=== PATIENT | male | born 1945 | race Caucasian/White ===

== ENCOUNTER 2020-12-05 22:53 | Inpatient (IN) | payer MEDICARE, OTHER ==
[~2020-12-05] VITALS: Ht 172.7 cm; Wt 80.7 kg
[2020-12-05 23:30] VITALS: BP 142/84
[2020-12-05] MEDS ORDERED: DIVA-78 PO (23:34)
[2020-12-05] MEDS ORDERED: OLAN5TAB3 PO (23:35)
[2020-12-05] MEDS ORDERED: TRIA15CR2 TP (23:37)
[2020-12-05] MEDS ORDERED: IXEK80SY3 SQ (23:40)
[2020-12-05] MEDS ORDERED: METO-357 PO (23:41)
[2020-12-05] MEDS ORDERED: DOCU100C36 PO (23:43)
[2020-12-05] MEDS ORDERED: SENN-261 PO (23:45)
[2020-12-05] MEDS ORDERED: FLUT16SP BNOSTRILS (23:47)
[2020-12-05] MEDS ORDERED: ATOR20TA PO (23:48)
[2020-12-05] MEDS ORDERED: CLOB15OI3 TP (23:49)
[2020-12-05] MEDS ORDERED: ALBU8.5H8 INH (23:51)
[2020-12-05] MEDS ORDERED: HYDR-3980 PO (23:53)
[2020-12-05] MEDS ORDERED: APRE30TA2 PO (23:55)
[2020-12-05] MEDS ORDERED: TROS60CA3 PO (23:55)
[2020-12-05] MEDS ORDERED: ONDA-97 PO (23:56)
[2020-12-05] MEDS ORDERED: PANT40TA2 PO (23:57)
[2020-12-05] MEDS ORDERED: CLOP75TA15 PO (23:58)
--- NOTE | 2020-12-05 23:58 | NUR ---
GPS BODY FORMER NOTES ADMITTED 75 YRS OLD MALE PT FROM [facility] TO GPS UNIT. PER 5150 HOLD, UPON EVALUATION PATIENT WAS VISIBLY AGITATED, VERY LOUD & KEPT TALKING ABOUT WANTING POLICE ESCORT. PATIENT WAS UNCOOPERATIVE DURING INTERVIEW. PER NURSE AT [facility], PATIENT HAS BEEN AGITATED, YELLING, NOT COMPLYING WITH DIRECTIONS. PER NURSE, FAMILY REPORTED, PATIENT HAS MOMENTS OF DELUSIONS & AGGRESSIVE BEHAVIOR. PATIENT HAS BEEN HOSPITALIZED. UPON FACE TO FACE ADMISSION, PATIENT IS A & O X 2, ON RA, FORGETFUL, CONFUSED AT TIMES. AWAKE. DISHEVELED, DISORGANIZED, HYPERVERBAL, LABILE, NEEDY, RESTLESS, ANXIOUS, EASILY AGITATED, PARANOID, DELUSIONAL, KEEP SAYING," MY NAME IS ALI, YOU KNOW WHO IS ALI ? ALI IS GOD'S MESSENGER TO ME." PT. KEEPS TALKING SAME THING OVER & OVER. & UNABLE TO TAKE CARE OF HIMSELF, NEEDS ASSISTANCE WITH ADL CARE. REDIRECTAED THE PATIENT AMBULATORY WITH STANDBY ASSIST DUE TO HX OF FALLS (PER PATIENT). INCONTINENT OF BOWEL AND BLADDER. PT. REFUSED TO SIGN ANY PAPERWORK DUE TO AGITATION. BODY CHECK DONE, PICTURES TAKEN, PLACED IN THE CHART. WOUND CARE CONSULT ORDERED. PATIENT HAS HX OF PSORIASIS (GENERALIZED). NO ACUTE DISTRESS NOTED. PT'S BELONGINGS INVENTORIED & CHECKED FOR CONTRABAND. PATIENT ADVISED OF HOLD & PATIENT RIGHTS HANDBOOK GIVEN. BED IN LOW LOCKED POSITION. SAFETY MEASURES IN PLACE. DR. GRIFFIN & SABRA ANDERSON NOTIFIED. WILL CONTINUE TO MONITOR THIS PT. Q 15 MIN TO MAINTAIN SAFETY.
--- NOTE | 2020-12-06 00:09 | NUR ---
GPS RN NOTE PATIENT SEEN BY DR. SABRA ANDERSON ON THE UNIT WITH NEW ORDERS TO GIVE ENEMA SINCE PATIENT C/O NOT HAVING BM X 7 DAYS TO MD. NOTED & CARRIED OUT. WILL GIVE ENEMA ORDERED ONCE VERIFIED BY PHARMACY.
[2020-12-06] MEDS ORDERED: BLOOD SUGAR DIAGNOSTIC 1 EACH STRIP IN ONE (00:30)
[2020-12-06] MEDS ORDERED: MAG HYDROX/AL HYDROX/SIMETH 30 ML UDC PO PRN (00:30)
[2020-12-06] MEDS ORDERED: FLUTICASONE PROPIONATE 16 GM BOTTLE NS PRN (00:30)
[2020-12-06] MEDS ORDERED: TEMAZEPAM 7.5 MG CAPSULE PO PRN (00:30)
--- NOTE | 2020-12-06 00:53 | NUR ---
GPS RN NOTE MD ORDERED TO GIVE ENEMA AT 0900 ON 12/06/2020. PATIENT IS SLEEPING INTERMITTENTLY AT THIS TIME 7 WANTS TO REST.
[2020-12-06] MEDS ORDERED: ALBUTEROL FS 2.5 MG/3 ML VIAL.NEB NEB PRN (01:30)
--- NOTE | 2020-12-06 07:13 | NUR ---
GPS RN NOTE CALLED PATIENT'S SON HUMZA WILBURN, NOTIFIED HIM ABOUT PATIENT'S ADMISSION AT [facility], GPS UNIT.
[2020-12-06 07:24] LABS: BASOPHILS % (AUTO) 0.8 % (0.0-2.0); EOSINOPHILS % (AUTO) 8.4 % (0.0-6.0); HEMATOCRIT 32 % (39-51); HEMOGLOBIN 10.5 g/dL (13.5-17.5); LYMPHOCYTES # (AUTO) 1.5 /CMM (0.8-4.8); LYMPHOCYTES % (AUTO) 25.3 % (20.0-44.0); MEAN CORPUSCULAR HGB CONC 33 g/dl (31.0-36.0); MEAN CORPUSCULAR VOLUME 92 fL (80-96); MONOCYTES # (AUTO) 0.4 /CMM (0.1-1.30); MONOCYTES % (AUTO) 7.4 % (2.0-12.0); NEUTROPHILS # (AUTO) 3.5 /CMM (1.8-8.9); NEUTROPHILS % (AUTO) 58.1 % (43.0-81.0); PLATELET COUNT (AUTO) 337 /CMM (150-450); RED BLOOD CELL COUNT(AUTO) 3.49 MIL/uL (4.5-6.0)
[2020-12-06 07:43] LABS: CALCIUM, SERUM 9.3 mg/dL (8.5-10.1); POTASSIUM 3.5 mmol/L (3.5-5.1)
[2020-12-06 08:00] VITALS: BP 122/64
[2020-12-06] MEDS ORDERED: MINERAL OIL 133 ML (PYXIS) 1 EA ENEMA RC ONE (09:00)
[2020-12-06] MEDS: PANTOPRAZOLE 40 MG TABLET.DR PO SCH (09:00)
[2020-12-06] MEDS: CLOPIDOGREL BISULFATE 75 MG TABLET PO SCH (09:00)
[2020-12-06] MEDS: CLOBETASOL 0.05% OINT 30 GM TUBE TP SCH ×2 (09:04→16:21)
[2020-12-06] MEDS: TRIAMCINOLONE ACETONIDE 0.5% 15 GM TUBE TP SCH ×4 (09:05→20:54)
--- NOTE | 2020-12-06 10:15 | NUR ---
RN Notes Enema given this a.m with large bm, patient voices relief. Welder Apprentice Arc followed up with son this a.m concerning medication clarification. Son will bring otezla, methotrexate(given every Wednesday), Taltz syringe(given monthly, last dose 12/02) and pull-ups. Patient aaox2, cooperative and med compliant. No aggressive behaviors, denies voices. Addendum: 12/06/20 at 1401 by ALEXY HENDRICKS RN Per son patient does not take trospium chloride since removal of bladder.
[2020-12-06] MEDS: ACETAMINOPHEN 325 MG TABLET PO PRN (10:41)
--- NOTE | 2020-12-06 11:02 | NUR ---
WOUND CARE CONSULT: PT PRESENTS WITH CLOSED ABDOMINAL INCISION WITH SOME SUTURES VISIBLE, PRESENT ON ADMISSION. NO DRAINAGE NOTED. PT STATES WILL SEE HIS SURGEON NEXT WEEK FOR FOLLOW UP. PT IS INDEPENDENT WITH BED MOBILITY. WILL SEE PRN.
--- NOTE | 2020-12-06 11:22 | NUR ---
Substance Abuse Intervention: SW conducted a substance abuse intervention with the pt due to his cannabis use.
[2020-12-06] MEDS: DIVALPROEX SODIUM 125 MG CAP.SPRINK PO SCH ×3 (11:30→16:33)
--- NOTE | 2020-12-06 12:12 | NUR ---
Family Contact: SW called the pts son/caregiver, Taya ([phone]), and received a detail of the most current events leading to the pts hospitalization and discussed the pts treatment plan. Pts son stated that the pt has been acting out since he had his bladder and prostrate removed. Pt has been refusing food and medication from his son. Pts son stated that he would like the pt home and would not want to send him to a rehab. SW stated that she will keep him updated.
--- NOTE | 2020-12-06 14:45 | NUR ---
Orders received per medical doctor to continue provided home medication otezla and methotrexate.
[2020-12-06] MEDS ORDERED: METH25VI11 IJ (14:58)
--- NOTE | 2020-12-06 15:30 | NUR ---
Initial Discharge Plan: Pt currently resides in an apartment located at [address] [place] [address]; ([phone]), with his son Taya. Per pt, he would like to return home. SW will work with the pt and the MD regarding appropriate discharge planning. SW will form a safe and proper discharge.
[2020-12-06 16:00] VITALS: BP 136/67
[2020-12-06] MEDS: OTEZLA 30 MG PO SCH (16:21)
--- NOTE | 2020-12-06 17:32 | NUR ---
RN NOTE PATIENT NOTED STANDING IN OUTSIDE OF BEDROOM DOOR, LOUDLY DEMANDING HOUSEKEEPING. EVERY STATEMENT INVOLVES "CHIEF POLICE TAKE CARE OF ME." REFUSES DEPAKOTE. DENIES HEARING VOICES. ASSISTANCE REQUIRED WITH URINATION-STANDS WHILE PRESSING ON BLADDER TO START STREAM. DENIES PAIN/DISCOMFORTS. 100% MEALS CONSUMED.
[2020-12-06] MEDS ORDERED: TROSPIUM CHLORIDE 60 MG PO SCH (18:00)
[2020-12-06 20:24] VITALS: BP 132/77
[2020-12-06] MEDS: METOPROLOL SUCCINATE 50 MG TAB.SR.24H PO SCH (21:09)
[2020-12-06] MEDS: DOCUSATE SODIUM 100 MG CAPSULE PO SCH (21:09)
[2020-12-06] MEDS: ATORVASTATIN 10 MG TABLET PO SCH (21:09)
[2020-12-06] MEDS: OLANZAPINE 10 MG TABLET PO SCH ×2 (21:10→22:00)
--- NOTE | 2020-12-06 21:10 | NUR ---
GPS-RN NOTES: MEDICATION REFUSAL PATIENT REFUSED SCHEDULED ZYPREXA DOSE FOR TONIGHT. EDUCATED PATIENT REGARDING MEDICATION COMPLIANCE. PATIENT STATED "NO, I DON'T WANT IT, I'M NOT CRAZY" OFFERED X3, PT. CONTINUED TO REFUSE. WILL CONTINUE TO MONITOR.
[2020-12-07] MEDS: ACETAMINOPHEN 325 MG TABLET PO PRN ×2 (01:55→17:41)
--- NOTE | 2020-12-07 01:55 | NUR ---
GPS-RN NOTES: LOWER BACK PAIN PATIENT C/O LOWER BACK PAIN ON A PAIN SCALE OF 3/10. ADMINISTERED ACETAMINOPHEN 650MG PO ORDERED PER PT'S REQUEST. WILL CONTINUE TO REASSESS.
--- NOTE | 2020-12-07 05:28 | NUR ---
GPS-RN NOTES: PATIENT C/O PAIN/DISCOMFORT IN THE LOWER ABDOMEN. PATIENT IS REQUESTING FOR TYLENOL. PRN TYLENOL 650MG PO WAS GIVEN AT 0155. PAGED EPIC ON-CALL CHAO ANDERSON INFORMED HIM REGARDING PATIENT'S REQUEST TO GET ONE TIME ORDER OF TYLENOL. PER MONICA, PATIENT HAVE TO WAIT UNTIL IT IS DUE AGAIN. PATIENT MADE AWARE AND HE VERBALIZED UNDERSTANDING. PATIENT MADE COMFORTABLE. WILL CONTINUE TO MONITOR. Addendum: 12/07/20 at 8526 by ROMAN DEWITT RN INFORMED HER
[2020-12-07 08:00] VITALS: BP 117/59
--- NOTE | 2020-12-07 08:00 | NUR ---
received pt. am,easily agitated,demanding.calling out for nurse often.
[2020-12-07] MEDS: CLOPIDOGREL BISULFATE 75 MG TABLET PO SCH (08:34)
[2020-12-07] MEDS: OTEZLA 30 MG PO SCH ×2 (08:34→17:33)
[2020-12-07] MEDS: DIVALPROEX SODIUM 125 MG CAP.SPRINK PO SCH ×4 (08:34→17:32)
[2020-12-07] MEDS: PANTOPRAZOLE 40 MG TABLET.DR PO SCH (08:34)
[2020-12-07] MEDS: CLOBETASOL 0.05% OINT 30 GM TUBE TP SCH ×2 (08:35→17:33)
[2020-12-07] MEDS: TRIAMCINOLONE ACETONIDE 0.5% 15 GM TUBE TP SCH ×4 (08:35→21:42)
[2020-12-07] MEDS: ONDANSETRON 4 MG TAB.RAPDIS PO PRN ×2 (12:28→17:54)
--- NOTE | 2020-12-07 12:33 | NUR ---
medicated for nausea with zofran.
--- NOTE | 2020-12-07 15:16 | NUR ---
RN CALLED Emilee MCCLELLAND NP REGARDING NEED FOR METHOTREXATE IM.STATES HE WILL ORDER TOMORROW FOR DRUG TO START SATURDAY 12/09.
[2020-12-07 16:00] VITALS: BP 107/67
--- NOTE | 2020-12-07 17:41 | NUR ---
given tylenol for discomfort.
--- NOTE | 2020-12-07 17:54 | NUR ---
given zofran for nausea although eating,pt. argumentative and requests med anyway.
--- NOTE | 2020-12-07 18:32 | NUR ---
refused depakote 2x today.
--- NOTE | 2020-12-07 18:42 | NUR ---
received call from [facility] regarding pt. having mrsa in nares.supercharger repair supervisor informed.bactroban ordered.
[2020-12-07] MEDS: MUPIROCIN OINT 2% 22 GM TUBE NS SCH (19:00)
--- NOTE | 2020-12-07 19:54 | NUR ---
GPS RN NOTES: PT REFUSED 19:00 BACTROBAN OINT 2% FOR BOTH NARES ORDERED.
[2020-12-07 20:09] VITALS: BP 141/86
[2020-12-07] MEDS: ATORVASTATIN 10 MG TABLET PO SCH (22:00)
[2020-12-07] MEDS: OLANZAPINE 10 MG TABLET PO SCH (22:00)
[2020-12-07] MEDS: METOPROLOL SUCCINATE 50 MG TAB.SR.24H PO SCH (22:34)
[2020-12-07] MEDS: DOCUSATE SODIUM 100 MG CAPSULE PO SCH (22:44)
--- NOTE | 2020-12-07 22:47 | NUR ---
GPS RN NOTES: PT REFUSED 22:00 MEDS. LIPITOR 20MG AND OLANZAPINE 2.5MG ORDERED.
[2020-12-08 00:59] LABS: BILIRUBIN,URINE NEGATIVE (NEGATIVE); COLOR,URINE YELLOW (YELLOW); LEUKOCYTE ESTERASE ,URINE MODERATE (NEGATIVE); NITRITE, URINE NEGATIVE (NEGATIVE); PH,URINE 6.5 (5.0-8.0); PROTEIN,URINE NEGATIVE (NEGATIVE); UGLUCOSE NEGATIVE (NEGATIVE); UROBILINOGEN,URINE 0.2 EU/dL (0.2)
[2020-12-08] MEDS: ACETAMINOPHEN 325 MG TABLET PO PRN ×2 (01:05→21:28)
[2020-12-08 01:53] LABS: WBC,URINE 81-100 /HPF (0-3)
[2020-12-08 01:54] LABS: BACTERIA,URINE Many /HPF (None Seen); SQUAMOUS EPITHELIAL CELL,UR Few /HPF (None Seen)
--- NOTE | 2020-12-08 05:53 | NUR ---
GPS RN NOTES: PATIENT URINE HAS LOTS OF SEDIMENTS. SAMPLE SENT TO LAB FOR URINALYSIS AND CULTURE. RESULT PENDING.
--- NOTE | 2020-12-08 06:36 | NUR ---
GPS RN CLOSING NOTES: PATIENT AWAKE, ALERT AND ORIENTED X2. LABILE, NEEDY, SLEPT 2HR THIS SHIFT. NO S/S OF DISTRESS. RESPIRATION EVEN AND UNLABORED WITH EQUAL RISE AND FALL OF THE CHEST ON ROOM AIR. SAFETY PRECAUTION MAINTAINED, Q15 MINUTES SAFETY ROUND CONTINUED. ALL PATIENT CARE NEEDS HAVE BEEN MET AT THIS TIME. WILL CONTINUE TO MONITOR PATIENT FOR MOOD, BEHAVIOR AND SAFETY AND ENDORSE TO AM SHIFT.
[2020-12-08 08:00] VITALS: BP 140/75
[2020-12-08] MEDS: CLOPIDOGREL BISULFATE 75 MG TABLET PO SCH (08:26)
[2020-12-08] MEDS: MUPIROCIN OINT 2% 22 GM TUBE NS SCH ×2 (08:29→21:00)
[2020-12-08] MEDS: CLOBETASOL 0.05% OINT 30 GM TUBE TP SCH ×2 (08:29→17:14)
[2020-12-08] MEDS: TRIAMCINOLONE ACETONIDE 0.5% 15 GM TUBE TP SCH ×4 (08:29→21:09)
[2020-12-08] MEDS: OTEZLA 30 MG PO SCH ×2 (08:29→17:15)
[2020-12-08] MEDS: DIVALPROEX SODIUM 125 MG CAP.SPRINK PO SCH ×2 (08:36→17:00)
[2020-12-08] MEDS: PANTOPRAZOLE 40 MG TABLET.DR PO SCH (08:37)
--- NOTE | 2020-12-08 09:00 | NUR ---
RN NOTE- PT LOUD AND NEEDY, VOIDING IN BED SIDE COMMODE SELECTIVELY MED COMPLIANT, PO INTAKE [employer] W FWW STEADY. DENIES ALL, DELUSIONAL CONFUSED
[2020-12-08] MEDS: MAGNESIUM HYDROXIDE 30 ML UDC PO PRN (12:26)
--- NOTE | 2020-12-08 12:26 | NUR ---
RN NOTE- C/O CONSTIPATION. MOM 30 CC GIVEN. THREE BM'S YESTERDAY TOTAL.
[2020-12-08] MEDS ORDERED: IBUPROFEN 400 MG TABLET PO PRN (14:00)
[2020-12-08] MEDS: CEPHALEXIN MONOHYDRATE 250 MG CAPSULE PO SCH ×2 (14:43→20:32)
[2020-12-08 16:00] VITALS: BP 141/86
[2020-12-08 20:30] VITALS: BP 117/64
--- NOTE | 2020-12-08 21:07 | NUR ---
GPS RN NOTES: PT REFUSED 21:00 BACTROBAN OINT 2% FOR BOTH NARES ORDERED.
[2020-12-08] MEDS: DOCUSATE SODIUM 100 MG CAPSULE PO SCH (21:27)
[2020-12-08] MEDS: METOPROLOL SUCCINATE 50 MG TAB.SR.24H PO SCH (21:29)
[2020-12-08] MEDS: OLANZAPINE 10 MG TABLET PO SCH (22:00)
[2020-12-08] MEDS: ATORVASTATIN 10 MG TABLET PO SCH (22:00)
--- NOTE | 2020-12-08 22:34 | NUR ---
GPS RN NOTES: PT REFUSED 22:00 MEDS. LIPITOR 20MG AND OLANZAPINE 0.25MG ORDERED.
[2020-12-09] MEDS: CEPHALEXIN MONOHYDRATE 250 MG CAPSULE PO SCH ×3 (05:27→21:25)
--- NOTE | 2020-12-09 06:17 | NUR ---
GPS RN CLOSING NOTES: PATIENT AWAKE, ALERT AND ORIENTED X2. LABILE, NEEDY, SLEPT 5HR THIS SHIFT. WEEKLY SKIN ASSESSMENT DONE, PICTURES TAKEN AND PLACED IN PATIENT CHART. NO S/S OF DISTRESS. RESPIRATION EVEN AND UNLABORED WITH EQUAL RISE AND FALL OF THE CHEST ON ROOM AIR. SAFETY PRECAUTION MAINTAINED, Q15 MINUTES SAFETY ROUND CONTINUED. ALL PATIENT CARE NEEDS HAVE BEEN MET AT THIS TIME. WILL CONTINUE TO MONITOR PATIENT FOR MOOD, BEHAVIOR AND SAFETY AND ENDORSE TO AM SHIFT.
[2020-12-09 08:00] VITALS: BP 124/65
[2020-12-09] MEDS: DIVALPROEX SODIUM 125 MG CAP.SPRINK PO SCH ×3 (09:00→16:33)
[2020-12-09] MEDS: PANTOPRAZOLE 40 MG TABLET.DR PO SCH (09:00)
[2020-12-09] MEDS: TRIAMCINOLONE ACETONIDE 0.5% 15 GM TUBE TP SCH ×4 (09:16→21:31)
[2020-12-09] MEDS: CLOPIDOGREL BISULFATE 75 MG TABLET PO SCH (09:16)
[2020-12-09] MEDS: MUPIROCIN OINT 2% 22 GM TUBE NS SCH ×2 (09:16→21:00)
[2020-12-09] MEDS: OTEZLA 30 MG PO SCH ×2 (09:16→16:13)
[2020-12-09] MEDS: CLOBETASOL 0.05% OINT 30 GM TUBE TP SCH ×2 (09:16→16:08)
[2020-12-09] MEDS: LORAZEPAM 0.5 MG TABLET PO PRN (09:16)
[2020-12-09 16:00] VITALS: BP 134/71
--- NOTE | 2020-12-09 16:33 | NUR ---
RN NOTES PATIENT REFUSED DIVALPROEX MEDICATION; EXPLAINED IMPORTANCE OF MEDICATION BUT PATIENT STILL REFUSED AND STATED THAT HE "DOES NOT HAVE ANY MENTAL PROBLEM".
[2020-12-09 20:03] VITALS: BP 126/66
[2020-12-09] MEDS: DOCUSATE SODIUM 100 MG CAPSULE PO SCH (21:24)
[2020-12-09] MEDS: METOPROLOL SUCCINATE 50 MG TAB.SR.24H PO SCH (21:28)
[2020-12-09] MEDS: ATORVASTATIN 10 MG TABLET PO SCH (21:30)
[2020-12-09] MEDS: OLANZAPINE 10 MG TABLET PO SCH (21:38)
--- NOTE | 2020-12-09 22:00 | NUR ---
NURSES NOTES: PATIENT REFUSED TO TAKE HIS LIPITOR AND ZYPREXA MEDICATION. PER PATIENT, " I DON'T KNOW WHAT THESE MEDICATIONS ARE, I AM NOT CRAZY". NURSE EXPLAINED TO PATIENT BENEFITS AND RISKS BUT PATIENT STILL REFUSED.
[2020-12-10] MEDS: CEPHALEXIN MONOHYDRATE 250 MG CAPSULE PO SCH ×3 (05:08→20:52)
[2020-12-10 08:00] VITALS: BP 128/52
[2020-12-10] MEDS: CLOPIDOGREL BISULFATE 75 MG TABLET PO SCH (08:54)
[2020-12-10] MEDS: MUPIROCIN OINT 2% 22 GM TUBE NS SCH ×2 (08:54→21:00)
[2020-12-10] MEDS: OTEZLA 30 MG PO SCH ×2 (08:55→16:51)
[2020-12-10] MEDS: PANTOPRAZOLE 40 MG TABLET.DR PO SCH (08:55)
[2020-12-10] MEDS: DIVALPROEX SODIUM 125 MG CAP.SPRINK PO SCH ×2 (08:55→16:51)
[2020-12-10] MEDS: CLOBETASOL 0.05% OINT 30 GM TUBE TP SCH ×2 (08:58→16:51)
[2020-12-10] MEDS: TRIAMCINOLONE ACETONIDE 0.5% 15 GM TUBE TP SCH ×4 (08:58→21:21)
--- NOTE | 2020-12-10 09:00 | NUR ---
RN NOTE-N PT NEEDY. SELECTIVELY MED COMPLIANT, NO BEHAVIORAL ISSUES, TOPICAL CREAM APPLIED FOR ECZEMA, PT PARANOID DELUSIONAL
[2020-12-10] MEDS ORDERED: METHOTREXATE SODIUM 25 MG/ML SQ SCH (14:30)
--- NOTE | 2020-12-10 15:51 | NUR ---
RN NOTE- SPOKE W SON REGARDING PTS METHOTREXATE ONCE WEEKLY SQ DOSE FOR PTS PSORIASIS . CHAO DRISCOLL INFORMED AND WERE TOLD BY PHARMACY THAT ITS A CHEMO RX AND NOT GIVEN ON THIS UNIT. SPOKE W SON AGAIN AND AGREE TO NOT ADMINISTER WHILE ON UNIT.
[2020-12-10 16:00] VITALS: BP 133/77
--- NOTE | 2020-12-10 16:06 | NUR ---
Family Contact: SW called the pts son/caregiver, Taya ([phone]), and discussed the pts Riese hearing the following day and verified that he would not be willing to take the pt home if the pt is not taking his medications.
[2020-12-10 19:46] VITALS: BP 128/69
[2020-12-10] MEDS: DOCUSATE SODIUM 100 MG CAPSULE PO SCH (21:17)
[2020-12-10] MEDS: METOPROLOL SUCCINATE 50 MG TAB.SR.24H PO SCH (21:18)
--- NOTE | 2020-12-10 21:22 | NUR ---
GPS RN NOTES: PT REFUSED 21:00 BACTROBAN OINT FOR BOTH NARES ORDERED.
[2020-12-10] MEDS: OLANZAPINE 10 MG TABLET PO SCH (22:00)
[2020-12-10] MEDS: ATORVASTATIN 10 MG TABLET PO SCH (22:00)
--- NOTE | 2020-12-10 22:08 | NUR ---
GPS RN NOTES: PT REFUSED 22:00 MEDS. LIPITOR 20MG AND OLANZAPINE 0.25MG ORDERED.
[2020-12-11] MEDS: CEPHALEXIN MONOHYDRATE 250 MG CAPSULE PO SCH ×3 (05:25→21:23)
--- NOTE | 2020-12-11 06:27 | NUR ---
GPS RN CLOSING NOTES: PATIENT LAYING ON BED, AWAKE, A/O 2X. CALM, PASSIVE, SLEPT 6HR THIS SHIFT. NO S/S OF DISTRESS. RESPIRATION EVEN AND UNLABORED WITH EQUAL RISE AND FALL OF THE CHEST ON ROOM AIR. SAFETY PRECAUTION MAINTAINED, Q15 MINUTES SAFETY ROUND CONTINUED. ALL PATIENT CARE NEEDS HAVE BEEN MET AT THIS TIME. WILL CONTINUE TO MONITOR PATIENT FOR MOOD, BEHAVIOR AND SAFETY AND ENDORSE TO AM SHIFT.
[2020-12-11 08:00] VITALS: BP 111/63
--- NOTE | 2020-12-11 08:00 | NUR ---
REFUSED DEPAKOTE IN AM.
[2020-12-11] MEDS: TRIAMCINOLONE ACETONIDE 0.5% 15 GM TUBE TP SCH ×4 (08:54→21:24)
[2020-12-11] MEDS: CLOBETASOL 0.05% OINT 30 GM TUBE TP SCH ×2 (08:54→18:10)
[2020-12-11] MEDS: MUPIROCIN OINT 2% 22 GM TUBE NS SCH ×2 (09:00→21:24)
[2020-12-11] MEDS: DIVALPROEX SODIUM 125 MG CAP.SPRINK PO SCH ×3 (09:00→18:10)
[2020-12-11] MEDS: PANTOPRAZOLE 40 MG TABLET.DR PO SCH ×2 (09:00→09:04)
[2020-12-11] MEDS: CLOPIDOGREL BISULFATE 75 MG TABLET PO SCH (09:04)
[2020-12-11] MEDS: OTEZLA 30 MG PO SCH ×2 (09:04→18:10)
[2020-12-11] MEDS ORDERED: OLANZAPINE 10 MG VIAL IM SCH (12:00)
--- NOTE | 2020-12-11 12:12 | NUR ---
GPS RN NOTE: T.O. ORDER FROM DR. GRIFFIN PT REISED NEW ORDER ZYPREXA 2.5 MG PO Q 12 HR FOR EVERY REFUSAL PO GIVE ZYPREXA 2.5 MG IM ORDER PLACED AND CARED OUT.
[2020-12-11] MEDS: OLANZAPINE 10 MG TABLET PO SCH ×2 (12:57→21:23)
[2020-12-11 16:00] VITALS: BP 131/70
--- NOTE | 2020-12-11 18:44 | NUR ---
talking freq. about going home.
[2020-12-11 20:04] VITALS: BP 117/71
[2020-12-11] MEDS: ATORVASTATIN 10 MG TABLET PO SCH (21:23)
[2020-12-11] MEDS: LORAZEPAM 0.5 MG TABLET PO PRN (21:23)
[2020-12-11] MEDS: METOPROLOL SUCCINATE 50 MG TAB.SR.24H PO SCH (21:24)
[2020-12-11] MEDS: DOCUSATE SODIUM 100 MG CAPSULE PO SCH (22:00)
--- NOTE | 2020-12-11 22:15 | NUR ---
PATIENT REFUSED STOOL SOFTENER, STATES HE HAD 2 BOWEL MOVEMENTS TODAY.
[2020-12-12] MEDS: CEPHALEXIN MONOHYDRATE 250 MG CAPSULE PO SCH ×3 (05:31→20:32)
--- NOTE | 2020-12-12 05:59 | NUR ---
PATIENT SLEPT FOR 6 HOURS, AWAKE INTERMITTENTLY. SAFETY PRECAUTIONS MAINTAINED. WILL CONTINUE MONITORING CLOSELY.
[2020-12-12 08:00] VITALS: BP 128/65
[2020-12-12] MEDS: MUPIROCIN OINT 2% 22 GM TUBE NS SCH ×2 (08:25→21:00)
[2020-12-12] MEDS: TRIAMCINOLONE ACETONIDE 0.5% 15 GM TUBE TP SCH ×4 (08:26→20:33)
[2020-12-12] MEDS: CLOPIDOGREL BISULFATE 75 MG TABLET PO SCH (08:26)
[2020-12-12] MEDS: CLOBETASOL 0.05% OINT 30 GM TUBE TP SCH ×2 (08:26→16:17)
[2020-12-12] MEDS: OTEZLA 30 MG PO SCH ×2 (08:26→16:17)
[2020-12-12] MEDS: OLANZAPINE 10 MG TABLET PO SCH ×2 (08:26→21:33)
[2020-12-12] MEDS: PANTOPRAZOLE 40 MG TABLET.DR PO SCH (08:26)
[2020-12-12] MEDS: DIVALPROEX SODIUM 125 MG CAP.SPRINK PO SCH ×2 (08:49→16:16)
[2020-12-12] MEDS: MAGNESIUM HYDROXIDE 30 ML UDC PO PRN (08:50)
[2020-12-12] MEDS: LORAZEPAM 0.5 MG TABLET PO PRN (10:31)
--- NOTE | 2020-12-12 14:46 | NUR ---
Family Contact: SW called the pts son/caregiver, Taya ([phone]), and informed him that the pt has been Reised and that today he actually took his medications orally without having to be forced. SW stated that if he continues to take his medications orally he will be discharged on Wednesday. SW stated that the nurses will explain the medications and discharge instructions at the time of discharge. SW also inquired about the pts cannabis use and pts son stated that the pt has been using cannabis since he was a teenager and their Neurologist, Dr. Webster, stated that it would help the pt sleep at night.
[2020-12-12 16:00] VITALS: BP 143/72
--- NOTE | 2020-12-12 17:42 | NUR ---
RN NOTE PATIENT MED COMPLIANT. DELUSIONAL STATEMENTS REMAIN THE SAME, SPEAKS OF THE "[employer]" & OFTEN REQUEST THE SHARPLES MACHINE OPERATOR BE PRESENT. APPEARS TO BE OBSESSED WITH BOWELS "CONSTIPATION." PRUNE JUICE AND MILK OF MAGNESIA ADMINISTERED. NO AGGRESSIVE BEHAVIORS. DENIES SI/HI, AUDITORY OR VISUAL HALLUCINATIONS.
[2020-12-12 19:49] VITALS: BP 135/73
[2020-12-12] MEDS: DOCUSATE SODIUM 100 MG CAPSULE PO SCH (21:25)
[2020-12-12] MEDS: ATORVASTATIN 10 MG TABLET PO SCH (21:25)
[2020-12-12] MEDS: METOPROLOL SUCCINATE 50 MG TAB.SR.24H PO SCH (21:27)
--- NOTE | 2020-12-12 21:34 | NUR ---
GPS RN NOTES: PT REFUSED 21:00 BACTROBAN OINT FOR BOTH NARES ORDERED.
[2020-12-13] MEDS: CEPHALEXIN MONOHYDRATE 250 MG CAPSULE PO SCH ×3 (05:18→21:33)
--- NOTE | 2020-12-13 06:35 | NUR ---
GPS RN CLOSING NOTES: PATIENT LAYING ON BED SLEEPING COMFORTABLY, SLEPT 7HR THIS SHIFT. MED COMPLIANT THIS SHIFT. NO S/S OF DISTRESS. RESPIRATION EVEN AND UNLABORED WITH EQUAL RISE AND FALL OF THE CHEST ON ROOM AIR. SAFETY PRECAUTION MAINTAINED, Q15 MINUTES SAFETY ROUND CONTINUED. ALL PATIENT CARE NEEDS HAVE BEEN MET. WILL CONTINUE TO MONITOR PATIENT FOR MOOD, BEHAVIOR AND SAFETY AND ENDORSE TO AM SHIFT.
[2020-12-13 08:00] VITALS: BP 105/50
[2020-12-13] MEDS: DIVALPROEX SODIUM 125 MG CAP.SPRINK PO SCH ×3 (08:23→16:19)
[2020-12-13] MEDS: OLANZAPINE 10 MG TABLET PO SCH ×2 (08:23→21:31)
[2020-12-13] MEDS: PANTOPRAZOLE 40 MG TABLET.DR PO SCH (08:23)
[2020-12-13] MEDS: CLOPIDOGREL BISULFATE 75 MG TABLET PO SCH (08:23)
[2020-12-13] MEDS: OTEZLA 30 MG PO SCH ×2 (08:28→16:15)
[2020-12-13] MEDS: TRIAMCINOLONE ACETONIDE 0.5% 15 GM TUBE TP SCH ×4 (08:28→21:32)
[2020-12-13] MEDS: MUPIROCIN OINT 2% 22 GM TUBE NS SCH ×2 (08:28→21:31)
[2020-12-13] MEDS: CLOBETASOL 0.05% OINT 30 GM TUBE TP SCH ×2 (08:28→16:15)
[2020-12-13 15:59] VITALS: BP 100/51
[2020-12-13 20:33] VITALS: BP 126/73
[2020-12-13] MEDS: DOCUSATE SODIUM 100 MG CAPSULE PO SCH (21:29)
[2020-12-13] MEDS: METOPROLOL SUCCINATE 50 MG TAB.SR.24H PO SCH (21:30)
[2020-12-13] MEDS: ATORVASTATIN 10 MG TABLET PO SCH (21:30)
[2020-12-14] MEDS: ACETAMINOPHEN 325 MG TABLET PO PRN (00:49)
--- NOTE | 2020-12-14 00:52 | NUR ---
NURSES NOTES: PATIENT COMPLAINED OF PAIN ON HIS SURGICAL SITE, REQUESTED FOR TYLENOL MEDICATION- TYLENOL 650 MG GIVEN ORALLY. WILL MONITOR EFFICACY OF MEDICATION.
[2020-12-14] MEDS: ONDANSETRON 4 MG TAB.RAPDIS PO PRN (03:23)
--- NOTE | 2020-12-14 03:47 | NUR ---
NURSES NOTES: PATIENT REPORTED NAUSEA FEELING. REQUESTED FOR MEDICATION. ZOFRAN 4 MG ODT TAB GIVEN ORDERED. WILL MONITOR PATIENT.
[2020-12-14] MEDS: CEPHALEXIN MONOHYDRATE 250 MG CAPSULE PO SCH ×3 (05:04→21:19)
[2020-12-14 08:00] VITALS: BP 120/64
[2020-12-14] MEDS: PANTOPRAZOLE 40 MG TABLET.DR PO SCH (08:33)
[2020-12-14] MEDS: CLOPIDOGREL BISULFATE 75 MG TABLET PO SCH (08:33)
[2020-12-14] MEDS: OLANZAPINE 10 MG TABLET PO SCH ×2 (08:33→21:20)
[2020-12-14] MEDS: DIVALPROEX SODIUM 125 MG CAP.SPRINK PO SCH ×3 (08:33→16:16)
[2020-12-14] MEDS: MUPIROCIN OINT 2% 22 GM TUBE NS SCH (08:35)
[2020-12-14] MEDS: CLOBETASOL 0.05% OINT 30 GM TUBE TP SCH ×2 (08:35→16:17)
[2020-12-14] MEDS: OTEZLA 30 MG PO SCH ×2 (08:35→16:16)
[2020-12-14] MEDS: TRIAMCINOLONE ACETONIDE 0.5% 15 GM TUBE TP SCH ×4 (08:35→21:20)
[2020-12-14 16:00] VITALS: BP 112/59
[2020-12-14] MEDS: SENNOSIDES 8.6 MG TABLET PO PRN (16:17)
[2020-12-14 19:58] VITALS: BP 119/66
[2020-12-14] MEDS: METOPROLOL SUCCINATE 50 MG TAB.SR.24H PO SCH (21:19)
[2020-12-14] MEDS: ATORVASTATIN 10 MG TABLET PO SCH (21:19)
[2020-12-14] MEDS: DOCUSATE SODIUM 100 MG CAPSULE PO SCH (21:22)
[2020-12-15] MEDS: MAGNESIUM HYDROXIDE 30 ML UDC PO PRN (02:29)
[2020-12-15] MEDS: SENNOSIDES 8.6 MG TABLET PO PRN (04:22)
[2020-12-15] MEDS: CEPHALEXIN MONOHYDRATE 250 MG CAPSULE PO SCH ×2 (04:23→12:10)
--- NOTE | 2020-12-15 04:26 | NUR ---
NURSES NOTES: PATIENT REPORTED OF CONSTIPATION. PATIENT TRIED TO DEFECATE BUT ONLY ABLE TO PASS A SMALL AMOUNT OF STOOL. REQUESTED FOR PILL AND PRUNE JUICE. SENNA TAB 1 GIVEN PRN DOSE DAILY. PRUNE JUICE GIVEN. WILL REPORT TO DAY SHIFT NURSE REGARDING CONSTIPATION SITUATION. Addendum: 12/15/20 at 0431 by CARYN BOND PALPATED PATIENT'S ABDOMEN. IT FEEL HARD AND RIGID.
[2020-12-15] MEDS: OTEZLA 30 MG PO SCH ×2 (08:15→16:08)
[2020-12-15] MEDS: PANTOPRAZOLE 40 MG TABLET.DR PO SCH (08:16)
[2020-12-15] MEDS: OLANZAPINE 10 MG TABLET PO SCH ×2 (08:16→20:55)
[2020-12-15] MEDS: CLOPIDOGREL BISULFATE 75 MG TABLET PO SCH (08:17)
[2020-12-15] MEDS: DIVALPROEX SODIUM 125 MG CAP.SPRINK PO SCH ×3 (08:17→16:17)
[2020-12-15] MEDS: TRIAMCINOLONE ACETONIDE 0.5% 15 GM TUBE TP SCH ×4 (08:41→20:44)
[2020-12-15] MEDS: CLOBETASOL 0.05% OINT 30 GM TUBE TP SCH ×2 (08:42→16:09)
[2020-12-15 08:54] VITALS: BP 144/75
[2020-12-15] MEDS ORDERED: LACTULOSE 10 G/15 ML UDC (PYXIS) PO PRN (12:00)
--- NOTE | 2020-12-15 12:26 | NUR ---
RN-CO: NOTIFIED DR DRISCOLL ABOUT THE CONSTIPATION PROBLEM OF THE PT, ORDERED MIRALAX X1, LACTULOSE 30 ML Q 8 HR PRN NOTED AND CARRIED OUT. Addendum: 12/15/20 at 1817 by JI TAYLOR RN RN-CO: LACTULOSE 15 ML, NOT 30 ML.
[2020-12-15] MEDS ORDERED: POLYETHYLENE GLYCOL 3350 17 GM POWD.PACK PO SCH (12:30)
[2020-12-15 16:00] VITALS: BP 107/60
--- NOTE | 2020-12-15 18:15 | NUR ---
RN-CO: PER PATIENT HE HAD A MEDIUM TO LARGE BM AT 6PM.
[2020-12-15 19:57] VITALS: BP 142/71
[2020-12-15] MEDS: ATORVASTATIN 10 MG TABLET PO SCH (21:01)
[2020-12-15] MEDS: DOCUSATE SODIUM 100 MG CAPSULE PO SCH (21:01)
[2020-12-15] MEDS: METOPROLOL SUCCINATE 50 MG TAB.SR.24H PO SCH (21:01)
[2020-12-16] MEDS: ACETAMINOPHEN 325 MG TABLET PO PRN ×2 (00:18→20:19)
--- NOTE | 2020-12-16 00:20 | NUR ---
GPS RN NOTES: PATIENT COMPLAINED OF PAIN ON HIS SURGICAL SITE. ADMINISTERED TYLENOL 650MG PO PER PT'S REQUEST. WILL CONTINUE TO REASSESS.
[2020-12-16 08:00] VITALS: BP 141/64
[2020-12-16] MEDS: CLOPIDOGREL BISULFATE 75 MG TABLET PO SCH (08:42)
[2020-12-16] MEDS: OLANZAPINE 10 MG TABLET PO SCH (08:42)
[2020-12-16] MEDS: DIVALPROEX SODIUM 125 MG CAP.SPRINK PO SCH ×2 (08:42→12:29)
[2020-12-16] MEDS: PANTOPRAZOLE 40 MG TABLET.DR PO SCH (08:42)
[2020-12-16] MEDS: OTEZLA 30 MG PO SCH ×2 (08:45→17:05)
[2020-12-16] MEDS ORDERED: OLANZAPINE 10 MG TABLET PO ONE ×2 (09:00→21:00)
--- NOTE | 2020-12-16 09:00 | NUR ---
RN NOTE- PT IS ALERT ORIENTED TO PERSON PLACE MILD CONFUSION DELUSIONAL PARANOIAS STILL PRESENT PO INTAKE GOOD A BIT LESS LABILE AND DELUSIONAL. LESS OUTBURSTS MORE DIRECTABLE
[2020-12-16] MEDS: TRIAMCINOLONE ACETONIDE 0.5% 15 GM TUBE TP SCH ×4 (09:28→21:46)
[2020-12-16] MEDS: CLOBETASOL 0.05% OINT 30 GM TUBE TP SCH ×2 (09:28→17:05)
--- NOTE | 2020-12-16 12:41 | NUR ---
Family Contact: GERSON called the pts son/caregiver, Taya ([phone]), with the MD Benton present. Chetan answered the questions that the pts son had regarding the medications and then GERSON planned the pts discharge for with the pts son/caregiver. Pt will be discharged on and will get picked up by the son around 6pm.
[2020-12-16 16:00] VITALS: BP 113/73
[2020-12-16] MEDS ORDERED: DIVALPROEX SODIUM 500 MG TABLET.DR PO SCH (17:00)
[2020-12-16] MEDS ORDERED: DIVALPROEX SODIUM 125 MG CAP.SPRINK PO SCH (20:00)
[2020-12-16 20:32] VITALS: BP 121/66
[2020-12-16] MEDS: ATORVASTATIN 10 MG TABLET PO SCH (22:09)
[2020-12-16] MEDS: DOCUSATE SODIUM 100 MG CAPSULE PO SCH (22:09)
[2020-12-16] MEDS: METOPROLOL SUCCINATE 50 MG TAB.SR.24H PO SCH (22:39)
[2020-12-17 08:00] VITALS: BP 142/72
[2020-12-17] MEDS: PANTOPRAZOLE 40 MG TABLET.DR PO SCH (08:27)
[2020-12-17] MEDS: CLOPIDOGREL BISULFATE 75 MG TABLET PO SCH (08:27)
[2020-12-17] MEDS: DIVALPROEX SODIUM 125 MG CAP.SPRINK PO SCH ×2 (08:35→20:32)
[2020-12-17] MEDS: CLOBETASOL 0.05% OINT 30 GM TUBE TP SCH ×2 (08:36→16:58)
[2020-12-17] MEDS: OTEZLA 30 MG PO SCH ×2 (08:36→16:58)
[2020-12-17] MEDS: TRIAMCINOLONE ACETONIDE 0.5% 15 GM TUBE TP SCH ×4 (08:36→20:32)
--- NOTE | 2020-12-17 09:00 | NUR ---
RN NOTE-PT IS ALERT ORIENTED TO PERSON PLACE MILD CONFUSION DELUSIONAL PARANOIA STILL PRESENT PO INTAKE GOOD A BIT LESS LABILE AND DELUSIONAL. LESS OUTBURSTS MORE DIRECTABLE
[2020-12-17 16:00] VITALS: BP_SYST 116; BP_SYST 166; BP_DIAS 65
[2020-12-17] MEDS: OLANZAPINE 5 MG TABLET PO SCH (21:05)
[2020-12-17] MEDS: DOCUSATE SODIUM 100 MG CAPSULE PO SCH (21:05)
[2020-12-17] MEDS: ATORVASTATIN 10 MG TABLET PO SCH (21:06)
[2020-12-17] MEDS: METOPROLOL SUCCINATE 50 MG TAB.SR.24H PO SCH (21:07)
[2020-12-18 03:45] VITALS: BP 126/70
[2020-12-18 04:27] VITALS: BP 126/70
[2020-12-18 08:00] VITALS: BP 116/74
[2020-12-18] MEDS: PANTOPRAZOLE 40 MG TABLET.DR PO SCH (09:37)
[2020-12-18] MEDS: DIVALPROEX SODIUM 125 MG CAP.SPRINK PO SCH ×2 (09:37→20:45)
[2020-12-18] MEDS: CLOPIDOGREL BISULFATE 75 MG TABLET PO SCH (09:38)
[2020-12-18] MEDS: OTEZLA 30 MG PO SCH ×2 (09:38→17:50)
[2020-12-18] MEDS: TRIAMCINOLONE ACETONIDE 0.5% 15 GM TUBE TP SCH ×4 (09:38→21:06)
[2020-12-18] MEDS: CLOBETASOL 0.05% OINT 30 GM TUBE TP SCH ×2 (09:40→17:51)
--- NOTE | 2020-12-18 10:46 | NUR ---
[facility] Contact: SW called [facility] ([phone]) and spoke to the officer of the day and made a hospital follow up appointment for the pt at 11am on Wednesday.
--- NOTE | 2020-12-18 10:49 | NUR ---
Family Contact: SW called the pts son/caregiver, Taya ([phone]), and informed him of the hospital follow up appointment information and then confirmed the pts picker operator time for the following day.
[2020-12-18 16:00] VITALS: BP 131/74
--- NOTE | 2020-12-18 16:31 | NUR ---
MORE SOCIABLE,LESS COMPLAINTIVE,WALKING ABOUT UNIT.
[2020-12-18 20:00] VITALS: BP 138/81
[2020-12-18] MEDS: ATORVASTATIN 10 MG TABLET PO SCH (21:02)
[2020-12-18] MEDS: OLANZAPINE 5 MG TABLET PO SCH (21:02)
[2020-12-18] MEDS: METOPROLOL SUCCINATE 50 MG TAB.SR.24H PO SCH (21:06)
[2020-12-18] MEDS: DOCUSATE SODIUM 100 MG CAPSULE PO SCH (21:07)
--- NOTE | 2020-12-19 05:30 | NUR ---
GPS-RN NOTES: PATIENT REFUSED COVID SWAB TEST. PATIENT STATED "NO, I DON'T NEED IT". EXPLAINED RISKS VS BENEFITS. PATIENT CONTINUED TO REFUSE. WILL ENDORSE ACCORDINGLY.
--- NOTE | 2020-12-19 06:10 | NUR ---
GPS-RN NOTES: PATIENT REFUSED AM LABS. PT STATED "I'M GOING HOME TODAY AND I DON'T NEED IT". EXPLAINED RISKS AND BENEFITS. PATIENT CONTINUED TO REFUSE. WILL ENDORSE TO AM SHIFT FOR CONTINUITY OF CARE.
[2020-12-19 08:00] VITALS: BP 127/61
[2020-12-19] MEDS: PANTOPRAZOLE 40 MG TABLET.DR PO SCH (08:30)
[2020-12-19] MEDS: DIVALPROEX SODIUM 125 MG CAP.SPRINK PO SCH ×2 (08:30→20:16)
[2020-12-19] MEDS: CLOPIDOGREL BISULFATE 75 MG TABLET PO SCH (08:30)
[2020-12-19] MEDS: OTEZLA 30 MG PO SCH ×2 (08:32→17:24)
--- NOTE | 2020-12-19 09:15 | NUR ---
Home Health Contact: GERSON faxed updated notes to [facility] to the fax number: [phone] as requested by the pts son.
--- NOTE | 2020-12-19 09:16 | NUR ---
Family Contact: SW called the pts son/caregiver, Taya ([phone]), and informed him that she received his voicemail and that she faxed over the notes to the home health [facility].
--- NOTE | 2020-12-19 09:17 | NUR ---
[facility] Contact: GERSON faxed notes from pts hospital stay for his follow up appointment to [facility] with attn to Dr. Nunez to the fax number: [phone].
--- NOTE | 2020-12-19 09:20 | NUR ---
Discharge Note: Pt will be discharged back to his home located at [address] [place] [address]. Pt lives with his son, Taya ([phone]), who will pecan picker the pt around 6pm. Upon discharge, the pt appears to be in a euthymic mood and presents with a congruent affect. Pt appears to be alert and oriented x4 (time, place, self and situation). Pt denies both suicidal and homicidal ideation as well as auditory and visual hallucinations. Pt appears to be ambulatory with an unsteady gait. Pt appears to be well groomed and appropriately dressed. SW provided the pt with substance abuse referrals and a copy was placed in the chart. Pt will continue to be under the care of psychiatrist, Dr. Eduardo Nunez at [facility], located at [address] [place] [address]; ([phone]). Pt has an appointment on 12/20/20 at 11am and notes were faxed to [phone]. Pt will be under the care of spray operator, Dr. Bruno, located at [id number] [place] [address]; . The multidisciplinary exit care form were done, printed, signed, and given to the patient.
[2020-12-19] MEDS: TRIAMCINOLONE ACETONIDE 0.5% 15 GM TUBE TP SCH ×4 (09:54→21:08)
[2020-12-19] MEDS: CLOBETASOL 0.05% OINT 30 GM TUBE TP SCH ×2 (09:54→17:24)
--- NOTE | 2020-12-19 14:28 | NUR ---
Dr. Benton gave an order to D/C hold and D/C home and to follow up with psych and medical doctors. Dr. Benton will enter the prescriptions electronically to the pharmacy. Pt. lives with his son, Taya and will pickling tank operator around 6:00 pm. Pt. without distress, denies suicidal and homicidal. Pt. Andonian made aware of the discharge and provided a prescriptions. Pt. signed the discharged papers and belongings ready.
[2020-12-19 16:00] VITALS: BP 132/62
--- NOTE | 2020-12-19 16:14 | NUR ---
Received a call from Dr. Benton to cancel the discharge for pt. doesn't have labs today. Dr. Benton spoke to the pt. that labs needed before discharging and psychiatrist will discharge him tomorrow and pt. agreed. Ephraim Browning will bean picker machine operator him at 2:00 pm tomorrow 12/20/20. Addendum: 12/19/20 at 1618 by CICI LOREDO RN son is aware
[2020-12-19 20:15] VITALS: BP 111/62
[2020-12-19] MEDS: METOPROLOL SUCCINATE 50 MG TAB.SR.24H PO SCH (21:07)
[2020-12-19] MEDS: OLANZAPINE 5 MG TABLET PO SCH (21:07)
[2020-12-19] MEDS: DOCUSATE SODIUM 100 MG CAPSULE PO SCH (21:07)
[2020-12-19] MEDS: ATORVASTATIN 10 MG TABLET PO SCH (21:07)
--- NOTE | 2020-12-19 22:15 | NUR ---
NURSES NOTES: PATIENT REQUESTED TO HAVE SLEEPING MEDICATION- RESTORIL 7.5MG GIVEN ORALLY PRN ORDER. WILL MONITOR PATIENT'S SLEEP PATTERN.
[2020-12-20] MEDS: MAGNESIUM HYDROXIDE 30 ML UDC PO PRN (03:46)
[2020-12-20 07:00] LABS: BASOPHILS # (AUTO) 0.1 /CMM (0.0-0.2); BASOPHILS % (AUTO) 0.7 % (0.0-2.0); EOSINOPHILS % (AUTO) 3.8 % (0.0-6.0); HEMATOCRIT 37 % (39-51); HEMOGLOBIN 12.3 g/dL (13.5-17.5); LYMPHOCYTES # (AUTO) 2.8 /CMM (0.8-4.8); LYMPHOCYTES % (AUTO) 34.6 % (20.0-44.0); MEAN CORPUSCULAR HGB CONC 33 g/dl (31.0-36.0); MEAN CORPUSCULAR VOLUME 91 fL (80-96); MONOCYTES # (AUTO) 0.9 /CMM (0.1-1.30); NEUTROPHILS # (AUTO) 4.1 /CMM (1.8-8.9); NEUTROPHILS % (AUTO) 49.9 % (43.0-81.0); PLATELET COUNT (AUTO) 386 /CMM (150-450); WHITE BLOOD COUNT (AUTO) 8.2 K/uL (4.3-11.0)
[2020-12-20 07:08] LABS: ALBUMIN 3.2 g/dL (3.4-5.0); BILIRUBIN,TOTAL 0.2 mg/dL (0.2-1.0); CALCIUM, SERUM 9.7 mg/dL (8.5-10.1); CREATININE 0.9 mg/dL (0.6-1.3); POTASSIUM 4.1 mmol/L (3.5-5.1); TOTAL PROTEIN, SERUM 7.7 g/dL (6.4-8.2)
--- NOTE | 2020-12-20 08:20 | NUR ---
Family Contact: SW called the pts son/caregiver, Taya ([phone]), and he stated that he will be arriving around 10:45am to pick pulling machine operator the pt today.
[2020-12-20] MEDS: DIVALPROEX SODIUM 125 MG CAP.SPRINK PO SCH (08:29)
[2020-12-20] MEDS: CLOPIDOGREL BISULFATE 75 MG TABLET PO SCH (08:30)
[2020-12-20] MEDS: OTEZLA 30 MG PO SCH (08:30)
[2020-12-20] MEDS: PANTOPRAZOLE 40 MG TABLET.DR PO SCH (08:30)
[2020-12-20] MEDS: TRIAMCINOLONE ACETONIDE 0.5% 15 GM TUBE TP SCH (08:31)
[2020-12-20 08:41] VITALS: BP 107/68
[2020-12-20] MEDS: CLOBETASOL 0.05% OINT 30 GM TUBE TP SCH (08:52)
--- NOTE | 2020-12-20 08:58 | NUR ---
PT WAS NOT DISCHARGED THE PREVIOUS DAY. MD GRIFFIN POSTPONED THE DISCHARGE TO CONDUCT LAB WORK.
--- NOTE | 2020-12-20 08:59 | NUR ---
Discharge Note: Pt will be discharged back to his home located at [address] [place] [address]. Pt lives with his son, Taya ([phone]), who will orange picking supervisor the pt around 10:45am. Upon discharge, the pt appears to be in a euthymic mood and presents with a congruent affect. Pt appears to be alert and oriented x4 (time, place, self and situation). Pt denies both suicidal and homicidal ideation as well as auditory and visual hallucinations. Pt appears to be ambulatory with an unsteady gait. Pt appears to be well groomed and appropriately dressed. SW provided the pt with substance abuse referrals and a copy was placed in the chart. Pt will continue to be under the care of psychiatrist, Dr. Eduardo Nunez at [facility], located at [address] [place] [address]; ([phone]). Pt has an appointment on 12/20/20 at 11am and notes were faxed to [phone]. Pt will be under the care of review trainer, Dr. Bruno, located at [address] [place] [address]; . The multidisciplinary exit care form were done, printed, signed, and given to the patient.
--- NOTE | 2020-12-20 09:23 | NUR ---
Dr. Benton was notified about the lab results and then gave an order to D/C hold D/C home and to follow up with the psych and medical doctors. Psychiatrist will enter the prescriptions electronically to the pharmacy at [facility] with the tel# [phone]. Dr. Moyer made aware of the discharge and said ok for discharge he did the prescriptions already. Son aTya made aware of the discharge and will come to potato picker the pt. between 10:30AM to 10:45AM.
--- NOTE | 2020-12-20 10:55 | NUR ---
FOUNDER AND CHIEF EXECUTIVE OFFICER NOTE: 75 YEAR OLD MALE DISCHARGED HOME WITH SON HUMZA.PT STABLE ON DISCHARGE. VSS, MOOD EUTHYMIC. DENIES SI/HI. VERBALIZES UNDERSTANDING AND AGREEMENT WITH DISCHARGE PLAN. PT A+OX3. AMBULATORY AND STABLE WITH CANE. PT DENIES AH/VH AT TIME OF DISCHARGE. NO AGGRESSIVE BEHAVIOR NOTED. WELL GROOMED AND DRESSED. EXIT CARE AND DISCHARGE PLAN EXPLAINED AND SIGNED BY PATIENT WELL SON. FOLLOW UP APPOINTMENTS DISCUSSED AND PRESCRIPTIONS EXPLAINED. PERSONAL ITEMS RETURNED WELL PERSONAL MEDICATIONS. PT'S SON SIGNED FOR RESPONSIBILITY FOR PATIENT. PATIENT ID BAND REMOVED. PT LEFT THE UNIT AND HOSPITAL VIA PERSONAL VECHICLE AT 10:55.
[2020-12-30] MEDS ORDERED: IXEKIZUMAB 80 MG INJ SCH (09:00)
== END 2020-12-20 10:55 | disposition home or self-care (01) | DRG 885 ==
LOC: GPS 22:53
PROVIDERS: ADMIT Psychiatry & Neurology Psychosomatic Medicine; ATTEND Registered Nurse
DX: F25.9 Schizoaffective disorder, unspecified (principal); N39.0 Urinary tract infection, site not specified; F29 Unspecified psychosis not due to a substance or known physiological condition; E78.5 Hyperlipidemia, unspecified; I25.10 Atherosclerotic heart disease of native coronary artery without angina pectoris; Z98.61 Coronary angioplasty status; G89.29 Other chronic pain; F17.210 Nicotine dependence, cigarettes, uncomplicated; F12.90 Cannabis use, unspecified, uncomplicated; L40.9 Psoriasis, unspecified; K59.00 Constipation, unspecified; I25.2 Old myocardial infarction; I10 Essential (primary) hypertension; Z90.79 Acquired absence of other genital organ(s); Z85.51 Personal history of malignant neoplasm of bladder; Z92.21 Personal history of antineoplastic chemotherapy; D63.8 Anemia in other chronic diseases classified elsewhere; I71.4 Abdominal aortic aneurysm, without rupture; M16.11 Unilateral primary osteoarthritis, right hip; Z73.6 Limitation of activities due to disability
CPT/HCPCS: 36415; 74018; 80048-TC; 80053-TC; 80061-TC; 80164-TC; 81001; 82962-TC; 85025-TC; 87081-TC; 87086-TC; 97116-TC; 97530-TC; Q0162

== ENCOUNTER 2022-04-03 18:39 | Inpatient (IN) | payer MEDICARE, OTHER ==
[~2022-04-03] VITALS: Ht 172.7 cm; Wt 80.7 kg
[~2022-04-03 18:39] MED LIST: ALBU8.5H8 INH; APRE30TA2 PO; ATOR20TA PO; CLOB15OI3 TP; CLOP75TA15 PO; DOCU100C36 PO; FLUT16SP BNOSTRILS; HYDR-3980 PO; IXEK80SY3 SQ; METH25VI11 SQ; METO-357 PO; ONDA-97 PO; PANT40TA2 PO; SENN-261 PO; TRIA15CR2 TP
[2022-04-03] MEDS ORDERED: FURO20TA4 PO (19:36)
[2022-04-03] MEDS ORDERED: GABA300C PO (19:39)
[2022-04-03] MEDS ORDERED: MAG HYDROX/AL HYDROX/SIMETH 30 ML UDC PO PRN (20:00)
[2022-04-03] MEDS ORDERED: BLOOD SUGAR DIAGNOSTIC 1 EACH STRIP IN ONE (20:00)
[2022-04-03] MEDS ORDERED: DOCU100C36 PO (20:22)
[2022-04-03] MEDS ORDERED: LINA290C PO (20:23)
[2022-04-03 20:24] VITALS: BP 147/69
[2022-04-03] MEDS ORDERED: RISP1TAB97 PO (20:24)
[2022-04-03] MEDS ORDERED: DIVA125C5 PO (20:26)
[2022-04-03] MEDS ORDERED: FLUT1BLS6 IH (20:28)
[2022-04-03 22:40] VITALS: BP 132/78
[2022-04-03] MEDS ORDERED: IXEKIZUMAB 80 MG SQ SCH (23:00)
[2022-04-03] MEDS ORDERED: FLUTICASONE PROPIONATE 16 GM BOTTLE NS PRN (23:00)
[2022-04-03] MEDS ORDERED: ALBUTEROL FS 2.5 MG/3 ML VIAL.NEB NEB PRN (23:00)
[2022-04-03] MEDS ORDERED: ONDANSETRON 4 MG TAB.RAPDIS PO PRN (23:30)
--- NOTE | 2022-04-03 23:31 | NUR ---
RN NOTES : ADMISSION NOTES: ADMITTED THIS 76Y/O MALE PATIENT DIRECT ADMIT FROM [facility] , INITIALLY FROM HOME. ADMITTED TO 5150 HOLD STATUS, PER HOLD PT. STATUS WILL JUMP FROM A MOVING CAR TO GET HIT BY ANOTHER CAR IN ORDER TO KILL HIMSELF NON COMPLY WITH MEDS . UPON FACE TO FACE ASSESSMENT PATIENT IS A&O X2, ANXIOUS ,EASILY AGITATED, RESTLESS ,PARANOID ,DISHELVED , NEEDY DEMEDNING ,POOR DECISION MAKING , LOUD SPEECH, HYPERVERBAL ,BIZAAR BEHAVIOR, JUMPING ONE TOPIC TO ANOTHER,NEEDS FREQUENTLY REDIRECTIONS , DENIES SI /HI AT THIS TIME, PT. IS POOR HISTORIAN, POOR INSIGHT ,POOR JUDGEMENT , BOTH MD AWARE AND NOTIFIED OF THE ADMISSION, BELONGINGS CONTRABAND WERE DONE , PT. REFUSED SIGNS ADMISSION CONSENT PAPER DUE TO CONFUSED,ENCOURAGED PT. TO TAKE SHOWER, PT. RIGHTS DISCUSS BY WEDGER AND GLUER , PROVIDE THE PT. WITH HANDBOOK, AND MEDICATIONS GUIDE, ENVIRONMENTAL SAFETY CHECK DONE, ENCOURAGED PT. VERBALIZED ANY FEELING CONCERN TO STAFF, ORIENT TO UNIT POLICY, NO ACUTE DISTRESS NOTED,VITAL SIGNS WNL ,DENIES ANY PAIN AT THIS TIME,WILL CONTINUE TO MONITOR FOR Q15 SAFETY AND BEHAVIOR.
--- NOTE | 2022-04-04 00:35 | NUR ---
RN NOTES:NOTIFIED PT. SON HUMZA WILBURN [phone] , REGARDING ABOUT ADMISSSION .
[2022-04-04 07:11] LABS: BASOPHILS % (AUTO) 0.4 % (0.0-2.0); EOSINOPHILS % (AUTO) 2.4 % (0.0-6.0); HEMATOCRIT 40 % (39-51); HEMOGLOBIN 13.2 g/dL (13.5-17.5); LYMPHOCYTES # (AUTO) 1.5 K/uL (0.8-4.8); LYMPHOCYTES % (AUTO) 19.7 % (20.0-44.0); MEAN CORPUSCULAR HGB CONC 33 g/dl (31.0-36.0); MEAN CORPUSCULAR VOLUME 91 fL (80-96); MONOCYTES # (AUTO) 0.8 K/uL (0.1-1.30); MONOCYTES % (AUTO) 11.1 % (2.0-12.0); NEUTROPHILS # (AUTO) 5.1 K/uL (1.8-8.9); NEUTROPHILS % (AUTO) 66.4 % (43.0-81.0); PLATELET COUNT (AUTO) 267 K/uL (150-450); RED BLOOD CELL COUNT(AUTO) 4.35 MIL/uL (4.5-6.0); WHITE BLOOD COUNT (AUTO) 7.6 K/uL (4.3-11.0)
[2022-04-04 07:30] LABS: BILIRUBIN,TOTAL 0.3 mg/dL (0.2-1.0); CALCIUM, SERUM 9.7 mg/dL (8.5-10.1); CREATININE 0.9 mg/dL (0.6-1.3); POTASSIUM 3.7 mmol/L (3.5-5.1)
--- NOTE | 2022-04-04 08:53 | NUR ---
REFUSED AM VITAL SIGNS.
[2022-04-04] MEDS: PANTOPRAZOLE 40 MG TABLET.DR PO SCH (08:57)
[2022-04-04] MEDS: DOCUSATE SODIUM 100 MG CAPSULE PO SCH ×2 (08:57→21:10)
[2022-04-04] MEDS: CLOPIDOGREL BISULFATE 75 MG TABLET PO SCH (08:57)
[2022-04-04] MEDS: TRIAMCINOLONE ACETONIDE 0.5% 15 GM TUBE TP SCH ×5 (08:58→21:10)
[2022-04-04] MEDS: CLOBETASOL 0.05% OINT 30 GM TUBE TP SCH ×3 (08:58→17:00)
[2022-04-04] MEDS ORDERED: Medication Not On Formulary EA (Linaclotide (Linzess) 290 MCG) PO SCH (09:00)
[2022-04-04] MEDS: ACETAMINOPHEN 325 MG TABLET PO PRN (13:04)
--- NOTE | 2022-04-04 13:06 | NUR ---
given tylenol 650 mg for stomach and back pain.
[2022-04-04] MEDS: METOPROLOL SUCCINATE 50 MG TAB.SR.24H PO SCH (14:01)
[2022-04-04] MEDS: FUROSEMIDE 20 MG TABLET PO SCH (14:01)
[2022-04-04] MEDS: DIVALPROEX SODIUM 250 MG TABLET.DR PO SCH ×3 (14:02→18:31)
[2022-04-04] MEDS: risperiDONE 1 MG TABLET PO SCH ×3 (14:02→18:31)
[2022-04-04] MEDS: MAGNESIUM HYDROXIDE 30 ML UDC PO PRN (15:35)
[2022-04-04 16:03] VITALS: BP 141/74
[2022-04-04] MEDS ORDERED: GABAPENTIN 300 MG CAPSULE PO SCH (18:00)
--- NOTE | 2022-04-04 18:00 | NUR ---
easily agitated and argumentative.given mom for constipation.
[2022-04-04 20:05] VITALS: BP 121/65
[2022-04-04] MEDS: ATORVASTATIN 10 MG TABLET PO SCH (21:18)
[2022-04-04] MEDS ORDERED: DOCUSATE SODIUM 100 MG CAPSULE PO SCH (22:00)
[2022-04-05] MEDS: ACETAMINOPHEN 325 MG TABLET PO PRN (04:48)
[2022-04-05 08:00] VITALS: BP 139/79
[2022-04-05] MEDS: PANTOPRAZOLE 40 MG TABLET.DR PO SCH (08:05)
[2022-04-05] MEDS: TRIAMCINOLONE ACETONIDE 0.5% 15 GM TUBE TP SCH ×5 (09:00→23:28)
[2022-04-05] MEDS: risperiDONE 1 MG TABLET PO SCH ×4 (09:00→16:56)
[2022-04-05] MEDS: CLOBETASOL 0.05% OINT 30 GM TUBE TP SCH ×3 (09:00→16:54)
[2022-04-05] MEDS: DIVALPROEX SODIUM 250 MG TABLET.DR PO SCH ×4 (09:00→16:56)
[2022-04-05] MEDS: CLOPIDOGREL BISULFATE 75 MG TABLET PO SCH (09:21)
[2022-04-05] MEDS: FUROSEMIDE 20 MG TABLET PO SCH (09:22)
[2022-04-05] MEDS: DOCUSATE SODIUM 100 MG CAPSULE PO SCH ×2 (09:22→23:06)
[2022-04-05] MEDS: METOPROLOL SUCCINATE 50 MG TAB.SR.24H PO SCH (09:22)
[2022-04-05 16:00] VITALS: BP 147/77
--- NOTE | 2022-04-05 19:45 | NUR ---
GPS RN OPENING NOTE RECEIVED PATIENT IN BED; AWAKE, ALERT AND ORIENTED X2. ON ROOM AIR; TOLERATING WELL WITH NO S/S OF RESPIRATORY DISTRESS. DENIES ANY PAIN OR DISCOMFORT OF THIS TIME. ABLE TO MAKE NEEDS KNOWN. SAFETY MEASURES IMPLEMENTED: BED IN LOWEST LOCKED POSITION, SIDE RAILS UP X2. WILL CONTINUE TO MONITOR.
[2022-04-05 20:00] VITALS: BP 113/68
[2022-04-05] MEDS: ATORVASTATIN 10 MG TABLET PO SCH (23:05)
[2022-04-06] MEDS: ACETAMINOPHEN 325 MG TABLET PO PRN ×4 (01:34→22:38)
[2022-04-06] MEDS: PANTOPRAZOLE 40 MG TABLET.DR PO SCH (07:00)
--- NOTE | 2022-04-06 07:30 | NUR ---
PT RECEIVED RESTING COMFORTABLY IN BED. NO S/S OR C/O PAIN OR DISTRESS NOTED. SIDE RAILS UP X2. WILL CONTINUE PLAN OF CARE.
[2022-04-06] MEDS: risperiDONE 1 MG TABLET PO SCH ×3 (09:00→16:46)
[2022-04-06] MEDS: CLOBETASOL 0.05% OINT 30 GM TUBE TP SCH ×2 (09:00→16:46)
[2022-04-06] MEDS: TRIAMCINOLONE ACETONIDE 0.5% 15 GM TUBE TP SCH ×4 (09:00→21:00)
[2022-04-06] MEDS: DIVALPROEX SODIUM 250 MG TABLET.DR PO SCH ×3 (09:00→16:46)
[2022-04-06] MEDS: CLOPIDOGREL BISULFATE 75 MG TABLET PO SCH (09:23)
--- NOTE | 2022-04-06 09:23 | NUR ---
GERSON Clinical Note: Pt placed on a 5150 hold for danger to himself. Pt lives at home and son takes care of pt. Pt wanted to jump out of a care and wanted another car to hit him. Pt wanted to end his life. Patient currently resides at [address] [place] [address]; ([phone]). Patient lives with son Taya ([phone]). Son involved in the care.
--- NOTE | 2022-04-06 09:23 | NUR ---
GERSON Initial Discharge Plan: Patient currently resides at [address] [place] [id number]; ([phone]). Patient lives with son Taya ([phone]). Son involved in the care. GERSON will work with the pt, family, and treatment team to help coordinate appropriate discharge.
[2022-04-06] MEDS: METOPROLOL SUCCINATE 50 MG TAB.SR.24H PO SCH (09:24)
[2022-04-06] MEDS: FUROSEMIDE 20 MG TABLET PO SCH (09:24)
--- NOTE | 2022-04-06 09:24 | NUR ---
Treatment Plan: Pt yelled at this investigative writer and was verbally abusive. He refused to sign treatment plan.
--- NOTE | 2022-04-06 12:28 | NUR ---
Social Work Note/Substance Abuse Intervention: Patient was provided with a brief substance abuse intervention and referred to [facility] ([phone]), [facility] ([phone]), and [facility] ([phone]) for marijuana use.
--- NOTE | 2022-04-06 12:28 | NUR ---
GERSON Family Contact: GERSON contacted pt's son Taya ([phone]) and discussed treatment/discharge plan. Son was concerned of pt's medications and his current symptoms. GERSON explained that pt is currently not taking any medications and that the doctor will file for a riese. GERSON explained the process. Son would want pt back home upon discharge. He was also requesting if the doctor can give pt long acting monthly injection. Son also requested a Neuro Consult. GERSON notified Dr. Benton.
[2022-04-06 16:00] VITALS: BP 138/76
--- NOTE | 2022-04-06 18:05 | NUR ---
CHANGE OF SHIFT REPORT PT RESTING COMFORTABLY IN BED. NO S/S OR C/O PAIN OR DISTRESS NOTED. SIDE RAILS UP X2, PT KEPT CLEAN DRY AND COMFORTABLE. NO SIGNIFICANT CHANGE SINCE PREVIOUS SHIFT. WILL GIVE REPORT TO TIN TIDWELL.
[2022-04-06 20:00] VITALS: BP 132/75
[2022-04-06] MEDS: DOCUSATE SODIUM 100 MG CAPSULE PO SCH (21:42)
[2022-04-07] MEDS: PANTOPRAZOLE 40 MG TABLET.DR PO SCH (07:04)
[2022-04-07 08:00] VITALS: BP 143/80
[2022-04-07] MEDS: METOPROLOL SUCCINATE 50 MG TAB.SR.24H PO SCH (08:56)
[2022-04-07] MEDS: DOCUSATE SODIUM 100 MG CAPSULE PO SCH ×2 (08:56→21:47)
[2022-04-07] MEDS: DIVALPROEX SODIUM 250 MG TABLET.DR PO SCH ×3 (08:56→16:23)
[2022-04-07] MEDS: CLOPIDOGREL BISULFATE 75 MG TABLET PO SCH (08:57)
[2022-04-07] MEDS: CLOBETASOL 0.05% OINT 30 GM TUBE TP SCH ×2 (09:00→16:16)
[2022-04-07] MEDS: risperiDONE 1 MG TABLET PO SCH ×3 (09:00→16:23)
[2022-04-07] MEDS: FUROSEMIDE 20 MG TABLET PO SCH (09:03)
[2022-04-07] MEDS: TRIAMCINOLONE ACETONIDE 0.5% 15 GM TUBE TP SCH ×4 (09:05→22:04)
--- NOTE | 2022-04-07 09:48 | NUR ---
RN-CO: PT IS SELECTIVE WITH MEDICATIONS, HE REFUSED HIS RISPERDAL AND DEPAKOTE FOR 3 DAYS NOW, HE DOES NOT BELIEVE THAT HE NEEDS IT EVEN I EXPLAINED THAT IT WILL HELP HIM AND IT HAS BEEN ORDERED BY HIS DOCTOR. HE IS DEMANDING AND SUSPICIOUS TO STAFF. HE IS EASILY AGITATED AND HAS POOR IMPULSE CONTROL. HE HAS DELISIONS OF GRANDIOSITY. I WILL CONTINUE TO MONITOR.
[2022-04-07] MEDS: MAGNESIUM HYDROXIDE 30 ML UDC PO PRN (13:09)
--- NOTE | 2022-04-07 13:14 | NUR ---
WILLYCO; MOM GIVEN FOR C/O CONSTIPATION.
[2022-04-07 16:11] VITALS: BP 138/84
--- NOTE | 2022-04-07 18:39 | NUR ---
RN-CO: ENDORSE TO THE NEXT SHIFT THAT THE SON WANTS TO TALK TO DR GRIFFIN OR DR DUNN.
--- NOTE | 2022-04-07 18:40 | NUR ---
RN-CO: DR GRIFFIN MADE AWARE THAT SON WANTS TO TALK TO HER.
[2022-04-07 20:21] VITALS: BP 126/87
[2022-04-07] MEDS: ATORVASTATIN 10 MG TABLET PO SCH (21:47)
[2022-04-08] MEDS: ACETAMINOPHEN 325 MG TABLET PO PRN (02:46)
[2022-04-08] MEDS: PANTOPRAZOLE 40 MG TABLET.DR PO SCH (06:18)
[2022-04-08 08:00] VITALS: BP 135/68
[2022-04-08] MEDS: risperiDONE 1 MG TABLET PO SCH ×3 (09:00→17:02)
[2022-04-08] MEDS: DIVALPROEX SODIUM 250 MG TABLET.DR PO SCH (09:00)
[2022-04-08] MEDS: FUROSEMIDE 20 MG TABLET PO SCH (09:00)
[2022-04-08] MEDS: CLOPIDOGREL BISULFATE 75 MG TABLET PO SCH (09:19)
[2022-04-08] MEDS: DOCUSATE SODIUM 100 MG CAPSULE PO SCH ×2 (09:19→21:16)
[2022-04-08] MEDS: METOPROLOL SUCCINATE 50 MG TAB.SR.24H PO SCH (09:20)
[2022-04-08] MEDS: CLOBETASOL 0.05% OINT 30 GM TUBE TP SCH ×2 (09:27→17:03)
[2022-04-08] MEDS: TRIAMCINOLONE ACETONIDE 0.5% 15 GM TUBE TP SCH ×4 (09:27→21:16)
[2022-04-08] MEDS: DIVALPROEX SODIUM 125 MG CAP.SPRINK PO SCH ×3 (10:30→17:02)
[2022-04-08] MEDS: OLANZAPINE 10 MG VIAL IM PRN (11:08)
--- NOTE | 2022-04-08 11:29 | NUR ---
RN-NOTES PATIENT REFUSED DEPAKOTE 250MG P.O,EXPLAINED TO THE PATIENT THAT HE IS RIESE AND THAT IM MEDICATION WILL BE GIVEN EVERY REFUSAL OF DEPAKOTE . PATIENT STATED" GIVE ME THE SHOT". PATIENT IS VERY ANGRY AND VERBALLY ABUSIVE TO THE DUST PULLER. ZYPREXA 5MG IM GIVEN ORDERED.ADMINISTERED AT THE RIGHT BUTTOCK, TOLERATED WELL.
[2022-04-08 16:00] VITALS: BP 149/64
--- NOTE | 2022-04-08 19:19 | NUR ---
GPS RN NOTES RECEIVED PATIENT IN BED AWAKE. ALERT AND ORIENTED X3. NO S/SX OF ACUTE DISTRESS NOTED. PATIENT REMAINS ANXIOUS, LOUD, HYPERVERBAL, NEEDY, DELUSIONAL. NO VERBALIZATION OF THOUGHTS AND FEELINGS. SAFETY PRECAUTIONS IN PLACE. WILL CONTINUE TO MONITOR Q15MIN ROUNDS FOR SAFETY AND BEHAVIOR.
[2022-04-08 20:00] VITALS: BP 115/54
[2022-04-08] MEDS: ATORVASTATIN 10 MG TABLET PO SCH (21:16)
[2022-04-09] MEDS: ACETAMINOPHEN 325 MG TABLET PO PRN (03:25)
[2022-04-09] MEDS: MAGNESIUM HYDROXIDE 30 ML UDC PO PRN (03:32)
[2022-04-09] MEDS: PANTOPRAZOLE 40 MG TABLET.DR PO SCH (06:02)
[2022-04-09 08:00] VITALS: BP 124/82
[2022-04-09] MEDS: FUROSEMIDE 20 MG TABLET PO SCH (08:47)
[2022-04-09] MEDS: DIVALPROEX SODIUM 125 MG CAP.SPRINK PO SCH ×3 (08:47→17:00)
[2022-04-09] MEDS: risperiDONE 1 MG TABLET PO SCH ×3 (08:47→17:00)
[2022-04-09] MEDS: CLOPIDOGREL BISULFATE 75 MG TABLET PO SCH (08:47)
[2022-04-09] MEDS: DOCUSATE SODIUM 100 MG CAPSULE PO SCH ×2 (08:47→22:37)
[2022-04-09] MEDS: METOPROLOL SUCCINATE 50 MG TAB.SR.24H PO SCH (08:47)
[2022-04-09] MEDS: CLOBETASOL 0.05% OINT 30 GM TUBE TP SCH ×2 (08:54→17:00)
[2022-04-09] MEDS: TRIAMCINOLONE ACETONIDE 0.5% 15 GM TUBE TP SCH ×4 (08:54→21:19)
[2022-04-09] MEDS: [UNRECOGNIZED DRUG - MIXTURE] INH SCH (14:24)
--- NOTE | 2022-04-09 14:57 | NUR ---
RN-NOTES PATIENT SITTING IN THE BED,A/O X2 NOTED WITH GUARDED, NEEDY EASILY ANGRY, COMPLIANT WITH MEDICATIONS. ABLE TO AMBULATE AROUND THE UNIT USING WALKER.PATIENT ATTENDED GROUP ACTIVITIES.ALL NEEDS ATTENDED AND ANTICIPATED.WILL CONT. MONITORING FOR SAFETY AND BEHAVIOR.
[2022-04-09] MEDS: Medication Not On Formulary EA (Apremilast (Otezla) 30 MG) PO SCH (17:00)
[2022-04-09] MEDS: OLANZAPINE 10 MG VIAL IM PRN (17:14)
--- NOTE | 2022-04-09 17:57 | NUR ---
RN-NOTES PATIENT REFUSED ALL 1700 PM MEDICATIONS INCLUDING DEPAKOTE 250MG P.O AND RISPERDAL 1MG P.O.EXPLAINED TO THE PATIENT THAT HE IS RIESE AND THAT IM MEDICATION WILL BE GIVEN EVERY REFUSAL OF DEPAKOTE AND RISPERDAL . PATIENT STATED" GIVE ME THE SHOT ,I DON'T WANT ANY OF THE MEDICATIONS". PATIENT IS VERY ANGRY AND VERBALLY ABUSIVE TO THE SAFETY REPRESENTATIVE. ZYPREXA 5MG IM GIVEN ORDERED.ADMINISTERED AT THE LEFT BUTTOCK, TOLERATED WELL.
[2022-04-09 20:00] VITALS: BP 160/86
[2022-04-09] MEDS: ATORVASTATIN 10 MG TABLET PO SCH (22:00)
[2022-04-10] MEDS: ACETAMINOPHEN 325 MG TABLET PO PRN (02:43)
--- NOTE | 2022-04-10 05:04 | NUR ---
RN NOTES: PATIENT IN BED RESTING. NO S/SX OF ACUTE DISTRESS NOTED. PATIENT PARANOID ,DISORGNIZED, ANXIOUS, LOUD, HYPERVERBAL, NEEDY, DEMENDING, DELUSIONAL,PER PT. I AM CHRIS FROM [facility]. NON REDIRECTABLE, NO VERBALIZATION OF THOUGHTS AND FEELINGS. SAFETY PRECAUTIONS IN PLACE. WILL CONTINUE TO MONITOR Q15MIN ROUNDS FOR SAFETY AND BEHAVIOR.
[2022-04-10 08:00] VITALS: BP 104/66
[2022-04-10] MEDS: PANTOPRAZOLE 40 MG TABLET.DR PO SCH (08:48)
[2022-04-10] MEDS: risperiDONE 1 MG TABLET PO SCH ×3 (08:49→16:14)
[2022-04-10] MEDS: CLOPIDOGREL BISULFATE 75 MG TABLET PO SCH (08:49)
[2022-04-10] MEDS: DOCUSATE SODIUM 100 MG CAPSULE PO SCH ×2 (08:49→21:21)
[2022-04-10] MEDS: DIVALPROEX SODIUM 125 MG CAP.SPRINK PO SCH ×3 (08:49→16:14)
[2022-04-10] MEDS: TRIAMCINOLONE ACETONIDE 0.5% 15 GM TUBE TP SCH ×4 (08:49→20:24)
[2022-04-10] MEDS: FUROSEMIDE 20 MG TABLET PO SCH (08:50)
[2022-04-10] MEDS: [UNRECOGNIZED DRUG - MIXTURE] INH SCH (08:50)
[2022-04-10] MEDS: METOPROLOL SUCCINATE 50 MG TAB.SR.24H PO SCH (08:51)
[2022-04-10] MEDS: Medication Not On Formulary EA (Apremilast (Otezla) 30 MG) PO SCH (08:52)
[2022-04-10] MEDS: CLOBETASOL 0.05% OINT 30 GM TUBE TP SCH ×2 (08:55→16:16)
[2022-04-10] MEDS ORDERED: METHOTREXATE SODIUM SQ SCH (09:00)
--- NOTE | 2022-04-10 12:19 | NUR ---
RN-NOTES RECEIVED T.O ORDER FROM DR. DUNN OF RISPERDAL 1MG P.O TID.NOTED AND CARRIED OUT.
[2022-04-10] MEDS: FOLIC ACID 1 MG TABLET PO SCH (12:46)
[2022-04-10] MEDS: METHOTREXATE SODIUM (2.5MG) 2.5 MG TABLET PO SCH (12:48)
[2022-04-10 16:00] VITALS: BP 132/70
[2022-04-10] MEDS: OTEZLA 30 MG PO SCH (16:18)
--- NOTE | 2022-04-10 17:35 | NUR ---
RN-NOTES PATIENT WATCHING TV IN THE DAY ROOM,A/O X2 GUARDED, NEEDY, EASILY ANGRY, COMPLIANT WITH MEDICATIONS THIS SHIFT. ABLE TO MAKE NEEDS KNOWN TO THE STAFF AND AMBULATE AROUND THE UNIT USING WALKER.PATIENT ATTENDED GROUP ACTIVITIES.ALL NEEDS ATTENDED AND ANTICIPATED.WILL CONT. MONITORING FOR SAFETY AND BEHAVIOR.
[2022-04-10 20:00] VITALS: BP 130/86
[2022-04-10] MEDS: ATORVASTATIN 10 MG TABLET PO SCH (21:20)
[2022-04-11] MEDS: ACETAMINOPHEN 325 MG TABLET PO PRN ×2 (02:22→16:10)
--- NOTE | 2022-04-11 02:34 | NUR ---
RN NOTES:PT. C/O HEADACHE PRN TYLENOL 650 MG PO GIVEN PER PT.REQUEST, WILL CONTINUE TO MONITOR.
--- NOTE | 2022-04-11 06:25 | NUR ---
RN NOTES: PATIENT BEHAVIOR. PARANOID ,DISORGNIZED, ANXIOUS, LOUD, HYPERVERBAL, NEEDY, DEMENDING, DELUSIONAL, STILL PER PT. I AM CHRIS FROM [facility], AND YOU GUYS SHOULD LISTEN TO ME AND FOLLOW MY ORDERS, COMMANDS, IN SHIFT PT. MED COMPLAINT ,ENCOURAGED PT. VERBALIZATION OF THOUGHTS AND FEELINGS. SAFETY PRECAUTIONS IN PLACED. WILL CONTINUE TO MONITOR Q15MIN ROUNDS FOR SAFETY AND BEHAVIOR.
[2022-04-11 08:00] VITALS: BP 133/77
[2022-04-11] MEDS: risperiDONE 1 MG TABLET PO SCH ×2 (08:04→12:08)
[2022-04-11] MEDS: PANTOPRAZOLE 40 MG TABLET.DR PO SCH (08:05)
[2022-04-11] MEDS: FUROSEMIDE 20 MG TABLET PO SCH (08:32)
[2022-04-11] MEDS: DOCUSATE SODIUM 100 MG CAPSULE PO SCH ×2 (08:32→21:26)
[2022-04-11] MEDS: DIVALPROEX SODIUM 125 MG CAP.SPRINK PO SCH ×3 (08:32→16:11)
[2022-04-11] MEDS: FOLIC ACID 1 MG TABLET PO SCH (08:32)
[2022-04-11] MEDS: CLOPIDOGREL BISULFATE 75 MG TABLET PO SCH (08:32)
[2022-04-11] MEDS: METOPROLOL SUCCINATE 50 MG TAB.SR.24H PO SCH (08:33)
[2022-04-11] MEDS: OTEZLA 30 MG PO SCH ×2 (08:38→16:18)
[2022-04-11] MEDS: [UNRECOGNIZED DRUG - MIXTURE] INH SCH (08:39)
[2022-04-11] MEDS: TRIAMCINOLONE ACETONIDE 0.5% 15 GM TUBE TP SCH ×4 (08:40→21:29)
[2022-04-11] MEDS: CLOBETASOL 0.05% OINT 30 GM TUBE TP SCH ×2 (08:40→16:19)
[2022-04-11] MEDS ORDERED: PALIPERIDONE PALMITATE 234 MG/1.5 ML SYRINGE IM ONE (14:30)
--- NOTE | 2022-04-11 14:55 | NUR ---
RN-NOTES INVEGA SUSTENNA 234MG IM GIVEN AT LEFT DELTOID PER PATIENT'S REQUEST. DR. DUNN GAVE T.O ORDER TO D/C RISPERDAL ORDER SOON PT. RECEIVED INVEGA SUSTENNA. NOTED AND CARRIED OUT.
[2022-04-11 16:00] VITALS: BP 125/70
--- NOTE | 2022-04-11 16:12 | NUR ---
RN-NOTES PATIENT REQUESTING FOR TYLENOL FOR HIS HEAD ACHE. TYLENOL 650MG P.O GIVEN PRN ORDER.
--- NOTE | 2022-04-11 17:23 | NUR ---
RN-NOTES PATIENT WATCHING TV IN THE DAY ROOM,A/O X2 CALM AND COOPERATIVE, NEEDY AT TIMES, COMPLIANT WITH MEDICATIONS THIS SHIFT. ABLE TO MAKE NEEDS KNOWN TO THE STAFF AND AMBULATE AROUND THE UNIT USING WALKER.PATIENT ATTENDED GROUP ACTIVITIES.ALL NEEDS ATTENDED AND ANTICIPATED.WILL CONT. MONITORING FOR SAFETY AND BEHAVIOR. WILL ENDORSE TO INCOMING NURSE FOR CONTINUITY OF CARE.
[2022-04-11] MEDS: ATORVASTATIN 10 MG TABLET PO SCH (21:26)
[2022-04-11 21:29] VITALS: BP 119/71
[2022-04-12] MEDS: ACETAMINOPHEN 325 MG TABLET PO PRN (00:26)
--- NOTE | 2022-04-12 00:27 | NUR ---
SHOULDER PAIN Patient ambulated with FWW, c/o shoulder pain, denies N/V/, no headache. Given Tylenol, will reassess pain level.
--- NOTE | 2022-04-12 06:18 | NUR ---
END OF SHIFT REPORT Hours of sleep 5. Shoulder pain improved with Tylenol. Mood changes, irritable at times. Ambulating frequently with FWW. No other complaints. Compliant with PO medications. Will endorse to oncoming RN.
[2022-04-12] MEDS: PANTOPRAZOLE 40 MG TABLET.DR PO SCH (07:00)
[2022-04-12 08:00] VITALS: BP 162/88
[2022-04-12] MEDS: DOCUSATE SODIUM 100 MG CAPSULE PO SCH ×2 (08:38→21:40)
[2022-04-12] MEDS: DIVALPROEX SODIUM 125 MG CAP.SPRINK PO SCH ×3 (08:38→17:11)
[2022-04-12] MEDS: FOLIC ACID 1 MG TABLET PO SCH (08:39)
[2022-04-12] MEDS: CLOPIDOGREL BISULFATE 75 MG TABLET PO SCH (08:39)
[2022-04-12] MEDS: METOPROLOL SUCCINATE 50 MG TAB.SR.24H PO SCH (08:39)
[2022-04-12] MEDS: FUROSEMIDE 20 MG TABLET PO SCH (08:40)
[2022-04-12] MEDS: TRIAMCINOLONE ACETONIDE 0.5% 15 GM TUBE TP SCH ×4 (08:41→21:39)
[2022-04-12] MEDS: CLOBETASOL 0.05% OINT 30 GM TUBE TP SCH ×2 (08:41→17:14)
[2022-04-12] MEDS: [UNRECOGNIZED DRUG - MIXTURE] INH SCH (08:41)
[2022-04-12] MEDS: OTEZLA 30 MG PO SCH ×2 (08:55→17:12)
[2022-04-12 16:02] VITALS: BP 144/77
[2022-04-12 20:11] VITALS: BP 144/60
[2022-04-12] MEDS: ATORVASTATIN 10 MG TABLET PO SCH (21:40)
[2022-04-13] MEDS: ACETAMINOPHEN 325 MG TABLET PO PRN ×2 (01:08→22:34)
[2022-04-13] MEDS: PANTOPRAZOLE 40 MG TABLET.DR PO SCH (07:54)
[2022-04-13 08:00] VITALS: BP 136/77
[2022-04-13] MEDS: SENNOSIDES 8.6 MG TABLET PO PRN (08:05)
[2022-04-13] MEDS: DOCUSATE SODIUM 100 MG CAPSULE PO SCH ×2 (08:05→22:30)
[2022-04-13] MEDS: FUROSEMIDE 20 MG TABLET PO SCH (08:06)
[2022-04-13] MEDS: METOPROLOL SUCCINATE 50 MG TAB.SR.24H PO SCH (08:06)
[2022-04-13] MEDS: CLOPIDOGREL BISULFATE 75 MG TABLET PO SCH (08:06)
[2022-04-13] MEDS: FOLIC ACID 1 MG TABLET PO SCH (08:07)
[2022-04-13] MEDS: CLOBETASOL 0.05% OINT 30 GM TUBE TP SCH ×2 (08:20→17:06)
[2022-04-13] MEDS: TRIAMCINOLONE ACETONIDE 0.5% 15 GM TUBE TP SCH ×4 (08:20→21:53)
[2022-04-13] MEDS: OTEZLA 30 MG PO SCH ×2 (08:21→17:09)
[2022-04-13] MEDS: [UNRECOGNIZED DRUG - MIXTURE] INH SCH (08:21)
[2022-04-13] MEDS: LORAZEPAM 0.5 MG TABLET PO PRN (09:44)
[2022-04-13] MEDS: DIVALPROEX SODIUM 125 MG CAP.SPRINK PO SCH ×3 (09:44→17:11)
--- NOTE | 2022-04-13 09:58 | NUR ---
RN-CO: ATIVAN WAS REQUESTED FOR C/O ANXIETY AND RESTLESSNESS.
--- NOTE | 2022-04-13 13:42 | NUR ---
RN-CO: PATIENT WATCHING TV IN THE DAY ROOM,GUARDED,CALM,NO ACUTE DISTRESS NOTED. WILL CONT. MONITORING FOR SAFETY AND BEHAVIOR.
[2022-04-13 16:00] VITALS: BP 111/68
[2022-04-13 19:49] VITALS: BP 122/57
[2022-04-13] MEDS: ATORVASTATIN 10 MG TABLET PO SCH (22:30)
--- NOTE | 2022-04-13 22:37 | NUR ---
GPS RN NOTES: PATIENT C/O BLADDER PAIN. TYLENOL 650MG GIVEN PO PRN ORDERED AT 2234. WILL CONTINUE TO MONITOR.
[2022-04-14] MEDS: ACETAMINOPHEN 325 MG TABLET PO PRN ×2 (05:29→21:36)
[2022-04-14] MEDS: PANTOPRAZOLE 40 MG TABLET.DR PO SCH (06:43)
[2022-04-14 08:00] VITALS: BP 152/86
[2022-04-14] MEDS: [UNRECOGNIZED DRUG - MIXTURE] INH SCH (08:10)
[2022-04-14] MEDS: TRIAMCINOLONE ACETONIDE 0.5% 15 GM TUBE TP SCH ×4 (08:10→21:15)
[2022-04-14] MEDS: CLOBETASOL 0.05% OINT 30 GM TUBE TP SCH ×2 (08:10→17:33)
[2022-04-14] MEDS: DOCUSATE SODIUM 100 MG CAPSULE PO SCH ×2 (08:11→21:15)
[2022-04-14] MEDS: OTEZLA 30 MG PO SCH ×2 (08:11→17:33)
[2022-04-14] MEDS: FUROSEMIDE 20 MG TABLET PO SCH (08:11)
[2022-04-14] MEDS: CLOPIDOGREL BISULFATE 75 MG TABLET PO SCH (08:11)
[2022-04-14] MEDS: DIVALPROEX SODIUM 125 MG CAP.SPRINK PO SCH ×3 (08:11→17:32)
[2022-04-14] MEDS: FOLIC ACID 1 MG TABLET PO SCH (08:11)
[2022-04-14] MEDS: METOPROLOL SUCCINATE 50 MG TAB.SR.24H PO SCH (08:12)
[2022-04-14 16:00] VITALS: BP 121/62
--- NOTE | 2022-04-14 18:09 | NUR ---
COOPERATIVE,MED COMPLIANT,NEEDS MET.
[2022-04-14 19:48] VITALS: BP 110/52
[2022-04-14 20:00] VITALS: BP 110/56
--- NOTE | 2022-04-14 20:00 | NUR ---
GPS RN NOTES RECEIVED LAYING ON BED IN HIS ROOM,LOUD VOICE SAYING DONT WAKE HIM UP,CLOSE THE DOOR.HE DOESNT WANT TO BE BOTHERED.WILL CONTINUE TO MONITOR BEHAVIOR.
[2022-04-14] MEDS: ATORVASTATIN 10 MG TABLET PO SCH (21:15)
--- NOTE | 2022-04-14 21:36 | NUR ---
GPS RN NOTES C/O HEADACHE,TYLENOL 650MG PO GIVEN ORDERED FOR MILD PAIN
[2022-04-15] MEDS: PANTOPRAZOLE 40 MG TABLET.DR PO SCH (06:36)
[2022-04-15 08:00] VITALS: BP 141/69
[2022-04-15] MEDS: OTEZLA 30 MG PO SCH ×2 (08:09→16:34)
[2022-04-15] MEDS: DOCUSATE SODIUM 100 MG CAPSULE PO SCH ×2 (08:09→21:11)
[2022-04-15] MEDS: FUROSEMIDE 20 MG TABLET PO SCH (08:09)
[2022-04-15] MEDS: CLOPIDOGREL BISULFATE 75 MG TABLET PO SCH (08:09)
[2022-04-15] MEDS: DIVALPROEX SODIUM 125 MG CAP.SPRINK PO SCH ×3 (08:09→16:29)
[2022-04-15] MEDS: FOLIC ACID 1 MG TABLET PO SCH (08:09)
[2022-04-15] MEDS: METOPROLOL SUCCINATE 50 MG TAB.SR.24H PO SCH (08:09)
[2022-04-15] MEDS: [UNRECOGNIZED DRUG - MIXTURE] INH SCH (08:10)
[2022-04-15] MEDS: CLOBETASOL 0.05% OINT 30 GM TUBE TP SCH ×2 (08:14→16:30)
[2022-04-15] MEDS: TRIAMCINOLONE ACETONIDE 0.5% 15 GM TUBE TP SCH ×4 (08:14→21:13)
[2022-04-15 16:00] VITALS: BP 149/78
--- NOTE | 2022-04-15 16:45 | NUR ---
RN-NOTES PATIENT IS VISIBLE IN THE UNIT A/O X2,CALM AND COOPERATIVE WITH CARE AND ATTENDED GROUP ACTIVITIES. NEEDY AT TIMES AND EASILY ANGRY, COMPLIANT WITH MEDICATIONS. ABLE TO VERBALIZE FEELINGS AND CONCERN TO THE STAFF AND AMBULATE AROUND THE UNIT USING WALKER. ALL NEEDS ATTENDED AND ANTICIPATED.WILL CONT. MONITORING FOR SAFETY AND BEHAVIOR. ENDORSE TO INCOMING SHIFT.
[2022-04-15 20:00] VITALS: BP 138/71
[2022-04-15] MEDS: ATORVASTATIN 10 MG TABLET PO SCH (21:11)
[2022-04-15] MEDS: TEMAZEPAM 7.5 MG CAPSULE PO PRN (21:11)
[2022-04-15] MEDS: ACETAMINOPHEN 325 MG TABLET PO PRN (21:18)
--- NOTE | 2022-04-15 21:18 | NUR ---
GPS RN NOTE PT C/O HEADACHE 12/18, TYLENOL 650 MG PO GIVEN. CONTINUE TO MONITOR.
--- NOTE | 2022-04-15 21:45 | NUR ---
GPS RN NOTE PT UNABLE TO SLEEP, ASKING FOR SLEEPING MED. RESTORIL 7.5 GM PO GIVEN. CONTINUE TO MONITOR.
--- NOTE | 2022-04-15 22:15 | NUR ---
GPS RN NOTE PT FALL ASLEEP, NO DISTRESS NOTED. ALSO HEADACHE SUBSIDED.
[2022-04-16 08:00] VITALS: BP 152/78
[2022-04-16] MEDS: PANTOPRAZOLE 40 MG TABLET.DR PO SCH (08:05)
[2022-04-16] MEDS: FOLIC ACID 1 MG TABLET PO SCH (08:05)
[2022-04-16] MEDS: CLOPIDOGREL BISULFATE 75 MG TABLET PO SCH (08:05)
[2022-04-16] MEDS: DIVALPROEX SODIUM 125 MG CAP.SPRINK PO SCH ×3 (08:05→16:02)
[2022-04-16] MEDS: DOCUSATE SODIUM 100 MG CAPSULE PO SCH ×2 (08:05→21:19)
[2022-04-16] MEDS: FUROSEMIDE 20 MG TABLET PO SCH (08:05)
[2022-04-16] MEDS: SENNOSIDES 8.6 MG TABLET PO PRN (08:05)
[2022-04-16] MEDS: METOPROLOL SUCCINATE 50 MG TAB.SR.24H PO SCH (08:06)
[2022-04-16] MEDS: TRIAMCINOLONE ACETONIDE 0.5% 15 GM TUBE TP SCH ×4 (08:24→21:19)
[2022-04-16] MEDS: [UNRECOGNIZED DRUG - MIXTURE] INH SCH (08:24)
[2022-04-16] MEDS: CLOBETASOL 0.05% OINT 30 GM TUBE TP SCH ×2 (08:25→16:01)
[2022-04-16] MEDS: OTEZLA 30 MG PO SCH ×2 (08:25→16:11)
--- NOTE | 2022-04-16 09:48 | NUR ---
RN-CO: PATIENT DENIED PAIN AND DISCOMFORTS, HAS BRIGHT AFFECT AND PARTICIPATING IN GROUP ACTIVITIES. HE IS NEEDY BUT REDIRECTABLE. HAS GRANDIOSITY, HOWEVER HIS PARANOIA IS BETTER. I WILL CONTINUE TO MONITOR.
--- NOTE | 2022-04-16 13:38 | NUR ---
RN-CO: PT REFUSED TRIAMCINOLONE CREAM, HE STATED " I AM SLEEPY GIVE IT TO ME LATER."
[2022-04-16 16:00] VITALS: BP 141/64
[2022-04-16] MEDS: ACETAMINOPHEN 325 MG TABLET PO PRN ×2 (16:11→21:26)
--- NOTE | 2022-04-16 16:12 | NUR ---
RN-CO: [id number] MG PO GIVEN FOR C/O 02/17 FOOR LEFT PAIN.
--- NOTE | 2022-04-16 19:30 | NUR ---
GPS RN NOTE, RECEIVED PATIENT AWAKE AND IN BED, NO S/S OR COMPLAINTS OF PAIN AT THIS TIME. PATIENT IS DISPLAYING NO S/S OF APPARENT DISTRESS AT THIS TIME. PATIENT BREATHING IS UNLABORED WITH EQUAL RISE AND FALL OF THE CHEST. PATIENT IS ALERT AND ORIENTED X 2-3 ON ROOM AIR WITH A SPO2 96%. PATIENT IS COMPLIANT WITH MEDICATIONS, CALM, DEMANDING, DISORGANIZED, AND IS COOPERATIVE. PATIENT DENIES SUICIDAL AND HOMICIDAL IDEATIONS AT THIS TIME. PATIENT ASSISTED WITH TURNING AND REPOSITIONING Q2HR AND PRN FOR COMFORT AND CIRCULATION. PATIENT HAS NO NEEDS AT THIS TIME. PATIENT EDUCATED ON THE USE OF THE CALL BUSBY. PATIENT BED SIDE RAILS UP X 2 FOR SAFETY. PATIENT BED IS LOCKED, LOW, WITH BED ALARM ON. WILL CONTINUE TO MONITOR THIS PATIENT Q15 MINUTES WITH THE HELP OF STAFF TO MAINTAIN SAFETY.
[2022-04-16 20:00] VITALS: BP 148/77
[2022-04-16] MEDS: ATORVASTATIN 10 MG TABLET PO SCH (21:19)
[2022-04-16] MEDS: TEMAZEPAM 7.5 MG CAPSULE PO PRN (21:26)
--- NOTE | 2022-04-16 21:26 | NUR ---
GPS RN NOTE, PATIENT HAS A COMPLAINT OF NOT BEING ABLE TO SLEEP AND IS REQUESTING RESTORIL AT THIS TIME. PATIENT VITAL SIGNS ARE STABLE. GAVE RESTORIL 7.5MG PO HS PRN ORDERED. WILL REASSESS FOR INSOMNIA AND I WILL CONTINUE TO MONITOR THIS PATIENT WITH THE HELP OF STAFF.
--- NOTE | 2022-04-16 21:27 | NUR ---
GPS RN NOTE, PATIENT HAS A COMPLAINT OF HEADACHE AT 2 OUT 10 ON THE PAIN SCALE AND IS REQUESTING TYLENOL AT THIS TIME. PATIENT VITAL SIGNS ARE STABLE. GAVE TYLENOL 650MG PO Q6HR PRN ORDERED. WILL REASSESS PAIN AND I WILL CONTINUE TO MONITOR THIS PATIENT WITH THE HELP OF STAFF.
[2022-04-17] MEDS: MAGNESIUM HYDROXIDE 30 ML UDC PO PRN (02:11)
--- NOTE | 2022-04-17 02:12 | NUR ---
GPS RN NOTE, PATIENT HAS A COMPLAINT OF CONSTIPATION AND IS REQUESTING MILK OF MAGNESIA AT THIS TIME. PATIENT VITAL SIGNS ARE STABLE. GAVE MILK OF MAGNESIA 30ML 1 UNIT DOSE PO Q12HR PRN ORDERED. WILL CONTINUE TO MONITOR THIS PATIENT WITH THE HELP OF STAFF.
[2022-04-17] MEDS: PANTOPRAZOLE 40 MG TABLET.DR PO SCH (07:34)
[2022-04-17 08:00] VITALS: BP 144/80
[2022-04-17] MEDS: [UNRECOGNIZED DRUG - MIXTURE] INH SCH (08:00)
[2022-04-17] MEDS: OTEZLA 30 MG PO SCH ×2 (08:00→17:17)
[2022-04-17] MEDS: SENNOSIDES 8.6 MG TABLET PO PRN (08:01)
[2022-04-17] MEDS: CLOBETASOL 0.05% OINT 30 GM TUBE TP SCH ×2 (08:01→17:16)
[2022-04-17] MEDS: TRIAMCINOLONE ACETONIDE 0.5% 15 GM TUBE TP SCH ×4 (08:01→21:34)
[2022-04-17] MEDS: FOLIC ACID 1 MG TABLET PO SCH (08:02)
[2022-04-17] MEDS: METOPROLOL SUCCINATE 50 MG TAB.SR.24H PO SCH (08:02)
[2022-04-17] MEDS: DIVALPROEX SODIUM 125 MG CAP.SPRINK PO SCH ×2 (08:02→12:36)
[2022-04-17] MEDS: FUROSEMIDE 20 MG TABLET PO SCH (08:02)
[2022-04-17] MEDS: DOCUSATE SODIUM 100 MG CAPSULE PO SCH ×2 (08:02→21:34)
[2022-04-17] MEDS: CLOPIDOGREL BISULFATE 75 MG TABLET PO SCH (08:02)
[2022-04-17 08:07] LABS: ALBUMIN 3.1 g/dL (3.4-5.0); BILIRUBIN,TOTAL 0.2 mg/dL (0.2-1.0); CALCIUM, SERUM 9.3 mg/dL (8.5-10.1); POTASSIUM 3.9 mmol/L (3.5-5.1); TOTAL PROTEIN, SERUM 7.4 g/dL (6.4-8.2)
[2022-04-17 08:14] LABS: BASOPHILS % (AUTO) 0.6 % (0.0-2.0); EOSINOPHILS % (AUTO) 2.9 % (0.0-6.0); HEMATOCRIT 40 % (39-51); LYMPHOCYTES # (AUTO) 1.5 K/uL (0.8-4.8); LYMPHOCYTES % (AUTO) 26.2 % (20.0-44.0); MEAN CORPUSCULAR HGB CONC 33 g/dl (31.0-36.0); MEAN CORPUSCULAR VOLUME 92 fL (80-96); MONOCYTES # (AUTO) 0.5 K/uL (0.1-1.30); NEUTROPHILS # (AUTO) 3.6 K/uL (1.8-8.9); NEUTROPHILS % (AUTO) 62.3 % (43.0-81.0); PLATELET COUNT (AUTO) 285 K/uL (150-450); RED BLOOD CELL COUNT(AUTO) 4.31 MIL/uL (4.5-6.0); WHITE BLOOD COUNT (AUTO) 5.8 K/uL (4.3-11.0)
[2022-04-17] MEDS: METHOTREXATE SODIUM (2.5MG) 2.5 MG TABLET PO SCH (12:27)
--- NOTE | 2022-04-17 12:44 | NUR ---
Coordination of Care: Pt will follow up with primary care, Dr. Lindsay Bruno located at [address] [facility] [address], [place] [address]; ([phone]) on May 25 at 2:45PM. Pt will follow up with Psychiatrist, Dr. Lala Delcid located at [facility] [address]; ([phone]) on May 04 at 3PM and Nursing assessment April 22 at 1PM via phone.
--- NOTE | 2022-04-17 13:04 | NUR ---
EARLY DISCHARGE ENTRY FOR Wednesday04/19/2022: Patient will return [place] [address] [place] [address]; ([phone]). Pts son Taya ([phone]) will picking machine operator pt at 3PM. Pt denies visual/auditory hallucinations. Pt denies suicidal or homicidal ideation. Pt happy to be going back home. Pt will follow up with primary care, Dr. Lindsay Bruno located at [address] [facility] [address]: [address], [place] [address]; ([phone]) on May 25 at 2:45PM. Pt will follow up with Psychiatrist, Dr. Lala Delcid located at [facility] [address]; ([phone]) on May 04 at 3PM and Nursing assessment April 22 at 1PM via phone. Pt presents with euthymic mood and congruent affect.
--- NOTE | 2022-04-17 13:04 | NUR ---
GERSON Family Contact: GERSON spoke with son Taya ([phone]) who stated that he will quill picking machine operator pt 04/19/2022 at 3PM.
[2022-04-17] MEDS: LORAZEPAM 0.5 MG TABLET PO PRN (15:13)
[2022-04-17 16:00] VITALS: BP 145/77
[2022-04-17] MEDS: DIVALPROEX SODIUM 500 MG TABLET.DR PO SCH (17:16)
--- NOTE | 2022-04-17 19:30 | NUR ---
GPS RN NOTE, RECEIVED PATIENT AWAKE AND IN BED, NO S/S OR COMPLAINTS OF PAIN AT THIS TIME. PATIENT IS DISPLAYING NO S/S OF APPARENT DISTRESS AT THIS TIME. PATIENT BREATHING IS UNLABORED WITH EQUAL RISE AND FALL OF THE CHEST. PATIENT IS ALERT AND ORIENTED X 2-3 ON ROOM AIR WITH A SPO2 97%. PATIENT IS COMPLIANT WITH MEDICATIONS, CALM, DEMANDING, DISORGANIZED, AND IS COOPERATIVE. PATIENT DENIES SUICIDAL AND HOMICIDAL IDEATIONS AT THIS TIME. PATIENT ASSISTED WITH TURNING AND REPOSITIONING Q2HR AND PRN FOR COMFORT AND CIRCULATION. PATIENT HAS NO NEEDS AT THIS TIME. PATIENT EDUCATED ON THE USE OF THE CALL BUSBY. PATIENT BED SIDE RAILS UP X 2 FOR SAFETY. PATIENT BED IS LOCKED, LOW, WITH BED ALARM ON. WILL CONTINUE TO MONITOR THIS PATIENT Q15 MINUTES WITH THE HELP OF STAFF TO MAINTAIN SAFETY.
[2022-04-17 20:01] VITALS: BP 112/61
[2022-04-17] MEDS: ATORVASTATIN 10 MG TABLET PO SCH (21:34)
[2022-04-18] MEDS: ACETAMINOPHEN 325 MG TABLET PO PRN ×2 (02:35→16:14)
[2022-04-18 08:00] VITALS: BP 130/70
[2022-04-18] MEDS: DOCUSATE SODIUM 100 MG CAPSULE PO SCH ×2 (08:11→21:32)
[2022-04-18] MEDS: DIVALPROEX SODIUM 125 MG CAP.SPRINK PO SCH ×2 (08:11→12:10)
[2022-04-18] MEDS: CLOPIDOGREL BISULFATE 75 MG TABLET PO SCH (08:12)
[2022-04-18] MEDS: FUROSEMIDE 20 MG TABLET PO SCH (08:12)
[2022-04-18] MEDS: METOPROLOL SUCCINATE 50 MG TAB.SR.24H PO SCH (08:12)
[2022-04-18] MEDS: FOLIC ACID 1 MG TABLET PO SCH (08:12)
[2022-04-18] MEDS: PANTOPRAZOLE 40 MG TABLET.DR PO SCH (08:12)
[2022-04-18] MEDS: [UNRECOGNIZED DRUG - MIXTURE] INH SCH (08:13)
[2022-04-18] MEDS: OTEZLA 30 MG PO SCH ×2 (08:29→16:15)
[2022-04-18] MEDS: CLOBETASOL 0.05% OINT 30 GM TUBE TP SCH ×2 (09:14→16:57)
[2022-04-18] MEDS: TRIAMCINOLONE ACETONIDE 0.5% 15 GM TUBE TP SCH ×4 (09:14→21:32)
--- NOTE | 2022-04-18 09:35 | NUR ---
RN Notes: Received pt. awake in bed, responsive to staffs, no distress and no agitation noted. Ate 100% for breakfast, compliant on meds. Pt. is cooperative to care and skin treatment. Encouraged to verbalize feelings and motivated to attend group activity. Pt. had shower and assisted by staff. Needs attended and will continue to monitor for safety.
--- NOTE | 2022-04-18 09:49 | NUR ---
Invega Sustenna 156 mg IM given at the left deltoid. Pt. tolerated well.
[2022-04-18] MEDS ORDERED: PALIPERIDONE PALMITATE 156 MG/ML SYRINGE IM ONE ×2 (10:00)
[2022-04-18 16:00] VITALS: BP 127/70
[2022-04-18] MEDS: DIVALPROEX SODIUM 500 MG TABLET.DR PO SCH (16:14)
[2022-04-18 20:26] VITALS: BP 111/69
[2022-04-18] MEDS: TEMAZEPAM 7.5 MG CAPSULE PO PRN (21:32)
[2022-04-18] MEDS: ATORVASTATIN 10 MG TABLET PO SCH (21:32)
[2022-04-19 08:00] VITALS: BP 153/83
[2022-04-19] MEDS ORDERED: DIVALPROEX SODIUM 125 MG CAP.SPRINK PO SCH (08:00)
[2022-04-19] MEDS: LORAZEPAM 0.5 MG TABLET PO PRN (08:06)
[2022-04-19 08:07] VITALS: BP 153/83
[2022-04-19] MEDS: CLOPIDOGREL BISULFATE 75 MG TABLET PO SCH (08:07)
[2022-04-19] MEDS: FUROSEMIDE 20 MG TABLET PO SCH (08:07)
[2022-04-19] MEDS: DOCUSATE SODIUM 100 MG CAPSULE PO SCH (08:07)
[2022-04-19] MEDS: PANTOPRAZOLE 40 MG TABLET.DR PO SCH (08:07)
[2022-04-19] MEDS: FOLIC ACID 1 MG TABLET PO SCH (08:07)
[2022-04-19] MEDS: METOPROLOL SUCCINATE 50 MG TAB.SR.24H PO SCH (08:07)
[2022-04-19] MEDS: OTEZLA 30 MG PO SCH (08:08)
[2022-04-19] MEDS: CLOBETASOL 0.05% OINT 30 GM TUBE TP SCH (08:08)
[2022-04-19] MEDS: [UNRECOGNIZED DRUG - MIXTURE] INH SCH (08:09)
--- NOTE | 2022-04-19 08:19 | NUR ---
RN-CO: LORAZEPAM GIVEN FOR C/O ANXIETY M/B RESTLESSNESS.
[2022-04-19] MEDS: ACETAMINOPHEN 325 MG TABLET PO PRN (08:25)
--- NOTE | 2022-04-19 08:25 | NUR ---
RN-CO: TYLENOL 650 MG PO FOR C/O HEADACHE 02/17.
[2022-04-19] MEDS: TRIAMCINOLONE ACETONIDE 0.5% 15 GM TUBE TP SCH (08:28)
--- NOTE | 2022-04-19 09:42 | NUR ---
RN-CO: Patient is aware of his discharge. Denied suicidal and homicidal ideation. Denied auditory and visual hallucination. Elated that he will go home today. No acute distress noted. He was seen and examined by Dr Gonzales, and ordered to discontinue hold and discharge the patient home today, noted. Patient signed all discharge papers and verbalized understanding after I discussed his medications and appointments. All belongings will be given back to the patient upon discharge.
--- NOTE | 2022-04-19 10:11 | NUR ---
RN-CO: Patient was seen by Dr Pastor , wrote prescription and medically cleared for discharge.
--- NOTE | 2022-04-19 13:15 | NUR ---
RN-CO: RN-CO: Patient is aware of his discharge home, and son Taya [phone] will be picking him up. He denied suicidal and homicidal ideation. Denied auditory and visual hallucination. Calm and cooperative to care. His affect is bright and excited to go home. He signed all discharge papers after I explained it to him and he verbalized understanding. Dr Gonzales seen and examined patient wrote prescription and ordered to discontinue hold and discharge patient today. Dr Pastor seen and examined him too , wrote prescription and medically cleared him for discharge. All belongings was given back to him. His up coming appointment was discussed and he verbalized understanding. He was escorted by staff in the hospital lobby.
== END 2022-04-19 13:15 | disposition home or self-care (01) | DRG 885 ==
LOC: GPS 18:39
PROVIDERS: ADMIT Psychiatry & Neurology Psychosomatic Medicine; ATTEND Nurse Practitioner Acute Care
DX: F31.9 Bipolar disorder, unspecified (principal); R45.851 Suicidal ideations; F12.90 Cannabis use, unspecified, uncomplicated; I25.10 Atherosclerotic heart disease of native coronary artery without angina pectoris; D63.8 Anemia in other chronic diseases classified elsewhere; G31.84 Mild cognitive impairment of uncertain or unknown etiology; F29 Unspecified psychosis not due to a substance or known physiological condition; I10 Essential (primary) hypertension; E78.5 Hyperlipidemia, unspecified; I25.2 Old myocardial infarction; Z98.61 Coronary angioplasty status; K40.90 Unilateral inguinal hernia, without obstruction or gangrene, not specified as recurrent; F17.200 Nicotine dependence, unspecified, uncomplicated; Z85.51 Personal history of malignant neoplasm of bladder; Z90.79 Acquired absence of other genital organ(s); Z79.899 Other long term (current) drug therapy
CPT/HCPCS: 36415; 80053-TC; 80061-TC; 80164-TC; 82962-TC; 85025-TC; 87081-TC; 97116-TC; 97530-TC; 97535-TC; J2426; J3490; J8610